=== PATIENT | female | born 1950 | race Caucasian/White ===

== ENCOUNTER 2017-10-10 13:02 | Inpatient (IN) | payer MEDICARE ==
[~2017-10-10] VITALS: Ht 160 cm; Wt 103.1 kg
[2017-10-10] MEDS ORDERED: NALOXONE 0.4 MG/ML VIAL. IV ONE (13:30)
--- NOTE | 2017-10-10 13:31 | EKG ---
[address] [address] Test Date: 2017-10-10 Test Time: 13:06:26 Pat Name: MIESHA GILMORE Department: Room: Gender: F Survey Research Manager: JONATHAN : 1950 Requested By: CM NIELSEN Order Number: [id number] Reading MD: Measurements Intervals [place] Rate: 75 P: 35 SD: 150 QRS: -36 QRSD: 118 T: 14 QT: 412 QTc: 463 Interpretive Statements SINUS RHYTHM ABNORMAL LEFT AXIS DEVIATION R-S TRANSITION ZONE IN V LEADS DISPLACED TO THE LEFT LEFT ANTERIOR FASCICULAR BLOCK LEFT VENTRICULAR HYPERTROPHY ABNORMAL ECG RI6.01 No previous ECG available for comparison
[2017-10-10 13:34] LABS: BASO # 0.1 x10^3/uL (0.0-0.2); BASO % 1 % (0-3); EOS # 0.3 x10^3/uL (0.0-0.7); EOS % 4 % (0-3); HEMOGLOBIN 10.5 g/dL (12.0-15.5); LYMPH # 2.3 x10^3/uL (1.0-4.8); LYMPH % 28 % (24-48); MEAN CORPUSCULAR HEMOGLOBIN 27 pg (25-35); MEAN CORPUSCULAR HGB CONC 33 g/dL (31-37); MEAN CORPUSCULAR VOLUME 83 fL (79-100); MONO # 0.9 x10^3/uL (0.0-1.1); MONO % 11 % (0-9); NEUT # 4.7 x10^3uL (1.8-7.7); NEUT % 57 % (31-73); PLATELET COUNT 373 x10^3/uL (140-400); RED BLOOD COUNT 3.88 x10^6/uL (3.50-5.40); RED CELL DISTRIBUTION WIDTH 15.9 % (11.5-14.5); WHITE BLOOD COUNT 8.2 x10^3/uL (4.0-11.0)
--- NOTE | 2017-10-10 13:40 | RAD ---
EXAM: Head CT without contrast. HISTORY: Mental status changes. TECHNIQUE: Computed tomographic images of the head were obtained without contrast. *One or more of the following individualized dose reduction techniques were utilized for this examination: 1. Automated exposure control. 2. Adjustment of the mA and/or kV according to patient size. 3. Use of iterative reconstruction technique. COMPARISON: None. FINDINGS: The exam is extremely limited due to motion. There is no hemorrhage. There is no mass effect or midline shift. There is extensive decreased attenuation within the cerebral white matter, a nonspecific finding. The orbits, paranasal sinuses mastoid air cells are unremarkable. The calvarium is unremarkable. IMPRESSION: 1. Extremely limited exam due to motion. Note is made that MRI is more sensitive for acute infarction. 2. Extensive decreased attenuation within the cerebral white matter, a nonspecific finding which can be seen with chronic small vessel disease. Electronically signed by: Marissa Brannon MD (10/10/2017 1:37 PM) [email or web address]
[2017-10-10 13:44] LABS: CALCIUM 8.9 mg/dL (8.5-10.1); CREATININE 1.1 mg/dL (0.6-1.0); GFR 49.8; POTASSIUM 4.3 mmol/L (3.5-5.1)
[2017-10-10] MEDS ORDERED: IV NORMAL SALINE 50ML 50 ML ONE (14:08)
[2017-10-10] MEDS ORDERED: PROMETHAZINE 25 MG/ML VIAL IV ONE (14:08)
[2017-10-10] MEDS ORDERED: PROMETHAZINE 12.5 MG in IV NORMAL SALINE 50ML 50 ML IV PRN (14:15)
[2017-10-10 14:17] LABS: CLARITY,URINE CLEAR; COLOR,URINE YELLOW
--- NOTE | 2017-10-10 14:17 | RAD ---
EXAM: Chest, single view. HISTORY: Unresponsive. COMPARISON: None. FINDINGS: A frontal view of the chest is obtained. There is mild diffuse increased interstitial opacity. There is no consolidation, effusion or pneumothorax. The heart is normal in size. IMPRESSION: Mild diffuse increased interstitial opacity suggesting trace congestion. Electronically signed by: Marissa Brannon MD (10/10/2017 2:13 PM) [email or web address]
[2017-10-10 14:18] LABS: BACTERIA,URINE 0 /HPF (0-FEW); BILIRUBIN,URINE NEG (NEG); GLUCOSE,URINE NEG (NEG); NITRITE,URINE NEG (NEG); RBC,URINE 0 /HPF (0-2); UROBILINOGEN,URINE 0.2 mg/dL (0.2 mg/dL); WBC,URINE 0 /HPF (0-4)
[2017-10-10] MEDS ORDERED: IV NORMAL SALINE 1,000ML 1,000 ML IV ONE (15:00)
--- NOTE | 2017-10-10 15:11 | PHYS DOC ---
Past History Past Medical History: Arthritis, Asthma, Hypertension, Other Adult General Chief Complaint Chief Complaint: ALTERED MENTAL STATUS HPI HPI 66-year-old female presents with decreased level of consciousness. She was last known to be about 10:30 PM last night. This morning, when her house the patient was sleeping. When the wet wash assembler showed up to clean the house, she found the patient on the floor of her bedroom and she was incontinent of urine and there was emesis. Patient was very difficult to arouse so she called EMS. When EMS arrived, they found the patient to be arousable but quite lethargic she was transported to the ED. In the ED the patient was able to be aroused and answered questions appropriately. She would only stay awake for about one question at a time. She was unable to tell us why she was in the hospital. She was able to say she did not feel well. Family provided the history of no new medication changes, no recent falls, no recent illnesses. The patient has not had a fever at home. She does routinely have emesis one to 2 times a day at least a few days a week. Review of Systems Review of Systems Review of systems was severely limited due to the patient's decreased level of consciousness. Constitutional: Denies fever [] Respiratory: Denies shortness of breath [] Cardiovascular: No additional information not addressed in HPI [] GI: Denies abdominal pain, Musculoskeletal: Denies back pain or joint pain [] All other systems were reviewed and found to be within normal limits, except as documented in this note. Current Medications Current Medications Current Medications Medications (Trade) Dose Ordered Sig/Jaz Start Time Stop Time Status Last Admin Dose Admin Naloxone HCl (Narcan) 0.4 mg 1X ONCE 10/10/17 13:30 10/10/17 13:47 DC 10/10/17 13:46 0.4 MG Promethazine HCl (Phenergan) 25 mg STK-MED ONCE 10/10/17 14:08 10/10/17 14:09 DC Promethazine HCl 12.5 mg/Sodium Chloride 50.5 ml @ 101 mls/hr PRN Q6HRS PRN 10/10/17 14:15 10/10/17 14:12 101 MLS/HR Sodium Chloride 1,000 ml @ 1,000 mls/hr 1X ONCE 10/10/17 15:00 10/10/17 15:59 Allergies Allergies Allergies Coded Allergies Type Severity Reaction Last Updated Verified Penicillins Allergy Unknown Rash 10/10/17 Yes Sulfa (Sulfonamide Antibiotics) Allergy Unknown Nausea 10/10/17 Yes clindamycin Allergy Unknown Nausea 10/10/17 Yes Physical Exam Physical Exam Constitutional: Well developed, well nourished, no acute distress, non-toxic appearance. Decreased alertness[] HENT: Normocephalic, atraumatic, bilateral external ears normal, oropharynx moist, no oral exudates, nose normal. [] Eyes: PERRLA, EOMI, conjunctiva normal, no discharge. [] Neck: Normal range of motion [] Cardiovascular:Heart rate regular rhythm, no murmur [] Lungs & Thorax: Bilateral breath sounds clear to auscultation [] Abdomen: Bowel sounds normal, soft, no masses, no pulsatile masses. [] Skin: Warm, dry, no erythema, no rash. [] Back: No tenderness, no CVA tenderness. [] Extremities: No tenderness, no cyanosis, no clubbing [] Neurologic: Decreased level of consciousness. Patient is arousable and will answer questions, but falls asleep quickly. She is moving all 4 extremities. She is aware of person place and time.[] Psychologic: Unable to determine. [] Current Patient Data Vital Signs Vital Signs Date Time Temp Pulse Resp B/P (MAP) Pulse Ox O2 Delivery O2 Flow Rate FiO2 10/10/17 14:47 75 16 112/68 (83) 99 Nasal Cannula 2.0 10/10/17 13:02 98.0 Lab Results Laboratory Tests Test 10/10/17 13:20 10/10/17 13:47 10/10/17 13:54 White Blood Count 8.2 x10^3/uL (4.0-11.0) Red Blood Count 3.88 x10^6/uL (3.50-5.40) Hemoglobin 10.5 g/dL (12.0-15.5) L Hematocrit 32.0 % (36.0-47.0) L Mean Corpuscular Volume 83 fL (79-100) Mean Corpuscular Hemoglobin 27 pg (25-35) Mean Corpuscular Hemoglobin Concent 33 g/dL (31-37) Red Cell Distribution Width 15.9 % (11.5-14.5) H Platelet Count 373 x10^3/uL (140-400) Neutrophils (%) (Auto) 57 % (31-73) Lymphocytes (%) (Auto) 28 % (24-48) Monocytes (%) (Auto) 11 % (0-9) H Eosinophils (%) (Auto) 4 % (0-3) H Basophils (%) (Auto) 1 % (0-3) Neutrophils # (Auto) 4.7 x10^3uL (1.8-7.7) Lymphocytes # (Auto) 2.3 x10^3/uL (1.0-4.8) Monocytes # (Auto) 0.9 x10^3/uL (0.0-1.1) Eosinophils # (Auto) 0.3 x10^3/uL (0.0-0.7) Basophils # (Auto) 0.1 x10^3/uL (0.0-0.2) Sodium Level 140 mmol/L (136-145) Potassium Level 4.3 mmol/L (3.5-5.1) Chloride Level 103 mmol/L (98-107) Carbon Dioxide Level 25 mmol/L (21-32) Anion Gap 12 (6-14) Blood Urea Nitrogen 11 mg/dL (7-20) Creatinine 1.1 mg/dL (0.6-1.0) H Estimated GFR (Cockcroft-Gault) 49.8 Glucose Level 128 mg/dL (70-99) H Lactic Acid Level 2.6 mmol/L (0.4-2.0) H Calcium Level 8.9 mg/dL (8.5-10.1) Troponin I Quantitative < 0.017 ng/mL (0-0.055) Glucose (Fingerstick) 115 mg/dL (70-99) H Urine Collection Type Unknown Urine Color Yellow Urine Clarity Clear Urine pH 7.5 Urine Specific [place] 1.015 Urine Protein Neg (NEG-TRACE) Urine Glucose (UA) Neg mg/dL (NEG) Urine Ketones (Stick) Neg mg/dL (NEG) Urine Blood Trace (NEG) Urine Nitrite Neg (NEG) Urine Bilirubin Neg (NEG) Urine Urobilinogen Dipstick 0.2 mg/dL (0.2 mg/dL) Urine Leukocyte Esterase Neg (NEG) Urine RBC 0 /HPF (0-2) Urine WBC 0 /HPF (0-4) Urine Bacteria 0 /HPF (0-FEW) EKG EKG [] Radiology/Procedures Radiology/Procedures EXAM: Chest, single view. HISTORY: Unresponsive. COMPARISON: None. FINDINGS: A frontal view of the chest is obtained. There is mild diffuse increased interstitial opacity. There is no consolidation, effusion or pneumothorax. The heart is normal in size. IMPRESSION: Mild diffuse increased interstitial opacity suggesting trace congestion. Electronically signed by: Marissa Brannon MD (10/10/2017 2:13 PM) [facility] []EXAM: Head CT without contrast. HISTORY: Mental status changes. TECHNIQUE: Computed tomographic images of the head were obtained without contrast. *One or more of the following individualized dose reduction techniques were utilized for this examination: 1. Automated exposure control. 2. Adjustment of the mA and/or kV according to patient size. 3. Use of iterative reconstruction technique. COMPARISON: None. FINDINGS: The exam is extremely limited due to motion. There is no hemorrhage. There is no mass effect or midline shift. There is extensive decreased attenuation within the cerebral white matter, a nonspecific finding. The orbits, paranasal sinuses mastoid air cells are unremarkable. The calvarium is unremarkable. IMPRESSION: 1. Extremely limited exam due to motion. Note is made that MRI is more sensitive for acute infarction. 2. Extensive decreased attenuation within the cerebral white matter, a nonspecific finding which can be seen with chronic small vessel disease. Electronically signed by: Marissa Brannon MD (10/10/2017 1:37 PM) [email or web address] Course & Med Decision Making Course & Med Decision Making Pertinent Labs and Imaging studies reviewed. (See chart for details) The patient does not appear to have focal deficits indicative of a stroke. She is able to answer simple questions and is aware of her surroundings when she is awake. She is unable to stay awake for more than a few seconds. Despite the patient's encephalopathy, I do not have an infectious source. Her labs are unremarkable except for slightly elevated lactic acid 2.6. We will repeat that in 4 hours. Her chest x-ray showed mild increased congestion, but no focal findings or consolidations. Her urinalysis is negative for infection. Her glucose is normal. Her head CT is negative for acute findings. I discussed the case with her PCP, Dr. Spring and he has accepted patient for admission. He has requested a consult with neurology. The family is in agreement with this plan. I talked with neurology who did not feel an emergent MRI was necessary. They agreed with admission for observation. They gave the option of lumbar puncture if warranted. I discussed with Dr. Spring and he preferred to wait on this procedure. Family was also in agreement with this. [] Dragon Disclaimer Dragon Disclaimer This electronic medical record was generated, in whole or in part, using a voice recognition dictation system. Departure Departure: Referrals: PCP,MARIZOL (PCP) CM NIELSEN DO October 10, 2017 15:11
[2017-10-10 15:38] LABS: BARBITURATES NEG (NEG); BENZODIAZEPINES NEG (NEG); CANNABINOIDS NEG (NEG); COCAINE NEG (NEG); METHADONE NEG (NEG); OPIATES NEG (NEG); PHENCYCLIDINE NEG (NEG)
[2017-10-10 15:39] LABS: AMPHETAMINE/METHAMPHETAMINE NEG (NEG)
[2017-10-10] MEDS ORDERED: NIFE90TA PO (15:55)
[2017-10-10] MEDS ORDERED: ONDA4TAB10 SL (15:55)
[2017-10-10] MEDS ORDERED: CHOL100013 PO (15:56)
[2017-10-10] MEDS ORDERED: IRON100V6 IJ (15:57)
[2017-10-10] MEDS ORDERED: UBID100C40 PO (15:58)
[2017-10-10] MEDS ORDERED: MAGN400C PO (15:58)
[2017-10-10] MEDS ORDERED: DIPH25CA58 PO (15:59)
[2017-10-10] MEDS ORDERED: IV NORMAL SALINE 1,000ML 1,000 ML IV SCH (16:00)
[2017-10-10] MEDS ORDERED: CETI10TA22 PO (16:01)
[2017-10-10] MEDS ORDERED: calcium PO (16:01)
[2017-10-10] MEDS ORDERED: GLUC100018 PO (16:02)
[2017-10-10] MEDS ORDERED: ALBU0.63 NEB (16:03)
[2017-10-10] MEDS ORDERED: ALBU6.7H IH (16:04)
[2017-10-10] MEDS ORDERED: XOPENEX0.63 MG/3 NEB (16:04)
[2017-10-10] MEDS ORDERED: FOLI1TAB16 PO (16:05)
[2017-10-10] MEDS ORDERED: CEVI30CA5 PO ×2 (16:06→17:26)
[2017-10-10] MEDS ORDERED: PANT40TA3 PO (16:06)
[2017-10-10] MEDS ORDERED: CITA20TA6 PO (16:07)
[2017-10-10] MEDS ORDERED: CITA40TA5 PO (16:07)
[2017-10-10] MEDS ORDERED: HYDR200T71 PO ×2 (16:08→16:14)
[2017-10-10] MEDS ORDERED: RANI300T3 PO (16:09)
[2017-10-10] MEDS ORDERED: FLUT9.9S NS (16:09)
[2017-10-10] MEDS ORDERED: METH4TAB PO (16:09)
[2017-10-10] MEDS ORDERED: ZOLP12.52 PO (16:10)
[2017-10-10] MEDS ORDERED: METF10003 PO (16:14)
[2017-10-10] MEDS ORDERED: CYAN10002 IM (16:15)
[2017-10-10] MEDS ORDERED: LEVO100T5 PO (16:15)
[2017-10-10 17:10] VITALS: BP 137/73
[2017-10-10] MEDS ORDERED: TRAM50TA PO (17:16)
[2017-10-10] MEDS ORDERED: MODA100T26 PO (17:18)
[2017-10-10] MEDS ORDERED: CYCL-331 PO (17:19)
[2017-10-10] MEDS ORDERED: BUPR522T PO (17:23)
[2017-10-10] MEDS ORDERED: SUCR1TAB PO (17:25)
[2017-10-10] MEDS ORDERED: PROM25SU32 RC (17:27)
[2017-10-10] MEDS ORDERED: CYCL1DRO EACHEYE (17:28)
[2017-10-10] MEDS ORDERED: METH2.5T PO (17:28)
[2017-10-10] MEDS ORDERED: [UNRECOGNIZED DRUG - CODE] TP (17:31)
[2017-10-10] MEDS ORDERED: ORPH-16 PO (17:32)
[2017-10-10] MEDS ORDERED: METH4TAB2 PO (17:34)
[2017-10-10] MEDS ORDERED: NON FORMULARY ITEM (Methylprednisolone (Medrol) 1 PKG) PO SCH (18:30)
[2017-10-10] MEDS ORDERED: NON FORMULARY ITEM (Levalbuterol Hcl (Xopenex) 1 VIAL) NEB PRN (18:30)
[2017-10-10] MEDS ORDERED: ALBUTEROL SULFATE 8GM INHALER. IH PRN (18:30)
[2017-10-10] MEDS ORDERED: NON FORMULARY ITEM (Albuterol Sulfate (Albuterol Sulfate Neb Soln) 1 VIAL) NEB PRN (18:30)
[2017-10-10 19:11] LABS: ALBUMIN 3.1 g/dL (3.4-5.0); TOTAL BILIRUBIN 0.2 mg/dL (0.2-1.0); TOTAL PROTEIN 6.2 g/dL (6.4-8.2)
[2017-10-10] MEDS ORDERED: ALBUTEROL SULFATE 2.5 MG/3 ML NEBU. NEB PRN (19:15)
[2017-10-10 19:34] LABS: DIRECT BILIRUBIN 0.1 mg/dL (0.0-0.2)
[2017-10-10 19:41] VITALS: BP 147/70
[2017-10-10 20:00] VITALS: BP 140/73
[2017-10-10] MEDS ORDERED: VANCOMYCIN 2 GM in IV NORMAL SALINE 500ML 500 ML IV ONE (20:00)
[2017-10-10] MEDS ORDERED: CEVIMELINE HCL 30 MG CAPSULE PO SCH ×2 (21:00)
[2017-10-10] MEDS ORDERED: HYDROXYCHLOROQUINE SULFATE 200 MG PO SCH (21:00)
[2017-10-10] MEDS: BUPROPION HBR PO SCH (21:00)
[2017-10-10] MEDS: VANCOMYCIN PER PHARMACY MC PRN (21:27)
[2017-10-10] MEDS: cycloSPORINE 0.05% OPTH 1 DROP DROPERETTE OU SCH (21:30)
[2017-10-10] MEDS: FAMOTIDINE 20 MG TABLET PO SCH (21:49)
[2017-10-10] MEDS: HYDROXYCHLOROQUINE 200 MG TABLET PO SCH (21:49)
[2017-10-10 22:00] VITALS: BP 145/71
[2017-10-10 23:00] VITALS: BP 134/81
[2017-10-11] VITALS (16 sets, daily range): BP systolic 120–175; BP diastolic 14–98
[2017-10-11] MEDS: ONDANSETRON ODT 4 MG TAB.RAPDIS PO PRN (03:55)
[2017-10-11] MEDS: LEVOTHYROXINE 100 MCG TABLET PO SCH (06:24)
[2017-10-11 06:44] LABS: BASO # 0.1 x10^3/uL (0.0-0.2); BASO % 1 % (0-3); EOS # 0.2 x10^3/uL (0.0-0.7); EOS % 2 % (0-3); HEMOGLOBIN 9.4 g/dL (12.0-15.5); LYMPH # 1.6 x10^3/uL (1.0-4.8); LYMPH % 20 % (24-48); MEAN CORPUSCULAR HEMOGLOBIN 27 pg (25-35); MEAN CORPUSCULAR HGB CONC 32 g/dL (31-37); MEAN CORPUSCULAR VOLUME 83 fL (79-100); MONO # 0.9 x10^3/uL (0.0-1.1); MONO % 12 % (0-9); NEUT # 5.2 x10^3uL (1.8-7.7); NEUT % 66 % (31-73); PLATELET COUNT 346 x10^3/uL (140-400); RED CELL DISTRIBUTION WIDTH 15.9 % (11.5-14.5)
[2017-10-11 06:50] LABS: CALCIUM 8.3 mg/dL (8.5-10.1); CREATININE 0.8 mg/dL (0.6-1.0); POTASSIUM 4.1 mmol/L (3.5-5.1); TOTAL BILIRUBIN 0.2 mg/dL (0.2-1.0); TOTAL PROTEIN 6.1 g/dL (6.4-8.2)
[2017-10-11] MEDS: PANTOPRAZOLE 40 MG TABLET. PO SCH (07:50)
[2017-10-11 07:58] LABS: SQUAMOUS EPITHELIAL CELL,UR FEW /LPF
[2017-10-11] MEDS: cycloSPORINE 0.05% OPTH 1 DROP DROPERETTE OU SCH ×2 (08:42→21:06)
[2017-10-11] MEDS: CITALOPRAM 20 MG TABLET. PO SCH (08:42)
[2017-10-11] MEDS: LACTOBACILLUS RHAMNOSUS GG 1 CAPSULE. PO SCH ×2 (08:43→21:51)
[2017-10-11] MEDS: HYDROXYCHLOROQUINE 200 MG TABLET PO SCH ×2 (08:44→21:07)
[2017-10-11] MEDS: FAMOTIDINE 20 MG TABLET PO SCH ×2 (08:44→20:29)
[2017-10-11] MEDS: MODAFINIL 100 MG TABLET PO SCH (08:45)
[2017-10-11] MEDS: CETIRIZINE HCL 10 MG TABLET PO SCH (08:45)
[2017-10-11] MEDS ORDERED: PRED-220 PO (11:53)
[2017-10-11] MEDS ORDERED: VANCOMYCIN 2 GM in IV NORMAL SALINE 500ML 500 ML IV SCH ×2 (12:00→22:00)
[2017-10-11] MEDS ORDERED: CONTRAST GIVEN MC PRN (12:15)
[2017-10-11] MEDS ORDERED: IOHEXOL 300 MG/ML 75 ML VIAL. IV ONE (12:30)
[2017-10-11] MEDS: VANCOMYCIN PER PHARMACY MC PRN ×2 (12:39→13:21)
--- NOTE | 2017-10-11 12:54 | RAD ---
CT arteriogram of the chest. HISTORY: Positive d-dimer, CT arteriogram of the chest was done using 75 mL Omnipaque 300 contrast. Sagittal and coronal MIP images were reconstructed. There is no mediastinal adenopathy or pleural effusion. There is a large hiatus hernia. Visualized portions of the liver and spleen are normal. Adrenal glands are normal. There are mild hazy infiltrates in the left lower lobe, aspiration or pneumonia can have this pattern. Contrast opacification is not ideal. There are no central pulmonary emboli IMPRESSION: 1. Left lung mainly left lower lobe infiltrates possible aspiration or pneumonia. 2. No definite pulmonary embolus. 3. Large hiatus hernia. PQRS Compliance Statement: One or more of the following individualized dose reduction techniques were utilized for this examination: 1. Automated exposure control 2. Adjustment of the mA and/or kV according to patient size 3. Use of iterative reconstruction technique Electronically signed by: Abdulaziz Lei MD (10/11/2017 12:51 PM) [facility]
[2017-10-11] MEDS: predniSONE 5 MG TABLET PO SCH (13:15)
[2017-10-11] MEDS: methylPREDNISolone 4 MG TABLET. PO SCH (13:15)
[2017-10-11] MEDS: VANCOMYCIN 1.5 GM in IV NORMAL SALINE 500ML 500 ML IV SCH (13:16)
[2017-10-11] MEDS: HEPARIN PF for SUB-Q USE 5,000 UNIT/0.5 ML VIAL. SQ SCH ×2 (13:17→21:09)
--- NOTE | 2017-10-11 18:14 | HP ---
ADMIT DATE: 10/10/2017 HISTORY OF PRESENT ILLNESS: A 66-year-old female apparently had decreased level of consciousness, was last known the night before admission; however, her healthcare administrative assistant showed up to clean the house, found the patient on the floor in her bedroom and was incontinent of urine and there was emesis. The patient was extremely difficult to arouse. She was then transported to the Emergency Room, unable to give most answers at all and went back into a deep sleep, but not coma. The patient had no other seizure-like activity. She does routinely have emesis 1-2 times a week; however, this was new as far as her loss of consciousness and her inability to answer questions. PAST MEDICAL HISTORY: Syncope, cardiac disorders, asthma, osteoarthritis, endocrine disorders, Sjogren's disease, diabetes, systemic lupus erythematosus, her pneumonia and influenza vaccinations are up-to-date. FAMILY HISTORY: Mother with lupus. Father with heart disease, cholecystitis, and appendicitis. ALLERGIES: THE PATIENT HAS ALLERGIES TO PENICILLIN, SULFUR, AND CLINDAMYCIN. MEDICATIONS AT HOME: Benadryl, Phenergan, Zyrtec 10, hydroxychloroquine 200 mg b.i.d. along with another 200 mg of , methotrexate 6 tablets weekly, Evoxac 30 mg t.i.d. for dry eyes, albuterol, Xopenex 1 vial nebs t.i.d., INFeD, tramadol 50 mg tablet, , Aplenzin 522 mg daily, Celexa 20 mg daily, Provigil 100 mg daily, Ambien 12.5 mg daily, cyclosporine, magnesium oxide, Zofran p.r.n., Zantac, Carafate, Protonix 40, Medrol Dosepak, prednisone 5, metformin, levothyroxine 100 mcg, B12 tablet, vitamin D, glucosamine, CoQ10, and calcium. SOCIAL HISTORY: The patient denies smoking, alcohol or drug use or tobacco use. IMMUNIZATIONS: Up-to-date. Full code. REVIEW OF SYSTEMS: The patient is not able to give any type of history as she is pretty much comatose. PHYSICAL EXAMINATION: GENERAL: This is very somnolent and nonresponsive individual. VITAL SIGNS: Blood pressure 140/70, respiratory rate 16, pulse 80, ____, oxygen saturation good. HEENT: The patient's head was atraumatic, normocephalic. Eyes: PERRLA without jaundice. Some reactive to light and accommodation. The mouth and throat were dry mucous membranes. NECK: Supple, without JVD, carotid bruits nor thyromegaly. LUNGS: The patient's lungs were diminished. Poor movement of air, but basically clear. CARDIOVASCULAR: CVR exam is regular sinus rhythm, S1, S2, without murmur, rub, thrill, or extra heart sounds. ABDOMEN: Soft, nontender. No rebounding, no guarding. Positive bowel sounds, no hepatosplenomegaly was noted. EXTREMITIES: No clubbing, cyanosis nor edema. NEUROLOGIC: Fairly arousable and the patient was given Narcan. The patient's reflex is appropriate both upper and lower extremities. Plantars down. The patient had a chest x-ray that was unremarkable; however, the CTA shows possible trace congestion. Head CT was unremarkable. In any case, the patient was admitted for further evaluation and treatment. Positive D-dimer shows a CTA possible pneumonia The patient is being covered for possible sepsis. Her initial lactic acid was elevated as well. IMPRESSION: Acute change in mental status, acute encephalopathy, seizure-like activity per history, aspiration, possible pneumonia, sepsis, moderate protein malnutrition, anemia, iron deficiency. The patient consulted with Neurology. PLAN: Continue on IV antibiotic therapy and make further evaluation on her per those results. LYLE FIGUEREDO MD DR: BRANDON/antonio JOB#: [id number] / [id number]
[2017-10-11] MEDS ORDERED: ZOLP5TAB5 PO (19:51)
[2017-10-11] MEDS: SUCRALFATE 1 GM TABLET. PO SCH (20:29)
[2017-10-11] MEDS: BUPROPION HBR PO SCH (21:00)
[2017-10-11] MEDS: CEVIMELINE HCL 30 MG PO SCH (21:06)
[2017-10-11] MEDS: ZOLPIDEM 5 MG TABLET. PO SCH (21:07)
[2017-10-12] MEDS: VANCOMYCIN 1.5 GM in IV NORMAL SALINE 500ML 500 ML IV SCH ×2 (01:11→14:16)
--- NOTE | 2017-10-12 01:14 | PN ---
DATE: SUBJECTIVE: The patient denies any new medical neurological complaints; however, she stated she did not recall the conversation between her and me last night. She denies headaches, visual disturbances, chest pain, shortness of breath, or palpitations. OBJECTIVE: GENERAL: Moderately obese white female, not in acute distress. VITAL SIGNS: Blood pressure 145/71, respiratory rate 18, pulse is 70 and regular, temperature is 97.5, and oxygen saturation is 92% on room air. HEENT: Normocephalic, atraumatic, otherwise unremarkable. NECK: Supple. Negative for carotid bruit, lymphadenopathy or thyromegaly. LUNGS: Clear to A and P. CARDIOVASCULAR: Regular rate and rhythm, normal S1, S2. There is no S3, S4, murmur. ABDOMEN: Soft. Bowel sounds positive. EXTREMITIES: Negative for cyanosis, clubbing or pitting edema. NEUROLOGICAL EXAM: Mental Status: The patient is alert and oriented x 3. Speech is fluent. There is no language dysfunction. Memory, judgment, abstract thinkings are normal. The patient denies hallucination or delusion. Cranial nerves are intact. No focal motor or sensory deficit. Deep tendon reflexes were symmetric and active without pathology responses. Gait and coordinations are normal. LABORATORY DATA: CBC revealed white cells of 8000, hemoglobin 9.4, hematocrit 29, and platelet count 346,000. Chemistry revealed a sodium of 140, potassium 4.1, chloride 105, CO2 of 26, BUN 7, creatinine 0.8, glucose is 93, and calcium 8.3. Lactic acid is 1. IMPRESSION: 1. Acute mental status changes - improved. 2. Status post fall, probably syncope versus seizure, no recurrence since admission. 3. Multiple medical problems include lupus, ____ disease, gastroesophageal reflux disease, osteoarthritis, hypertension, and anemia. RECOMMENDATION: 1. Await for previous medical record at [facility]. 2. We will arrange for an EEG to be done on an outpatient basis. 3. Continue with current management initiated by Dr. Gauthier. M Phuong JENKINS MD DR: CASIMIRO/antonio JOB#: [id number] / [id number]
[2017-10-12 04:35] VITALS: BP 144/74
[2017-10-12] MEDS: LEVOTHYROXINE 100 MCG TABLET PO SCH (05:45)
[2017-10-12] MEDS: HEPARIN PF for SUB-Q USE 5,000 UNIT/0.5 ML VIAL. SQ SCH ×3 (05:48→21:08)
[2017-10-12 05:50] LABS: BASO % 0 % (0-3); EOS # 0.3 x10^3/uL (0.0-0.7); EOS % 4 % (0-3); HEMOGLOBIN 10.1 g/dL (12.0-15.5); LYMPH # 2.2 x10^3/uL (1.0-4.8); LYMPH % 29 % (24-48); MEAN CORPUSCULAR HEMOGLOBIN 27 pg (25-35); MEAN CORPUSCULAR HGB CONC 33 g/dL (31-37); MEAN CORPUSCULAR VOLUME 83 fL (79-100); MONO # 0.9 x10^3/uL (0.0-1.1); MONO % 12 % (0-9); NEUT # 4.2 x10^3uL (1.8-7.7); NEUT % 55 % (31-73); PLATELET COUNT 356 x10^3/uL (140-400); RED BLOOD COUNT 3.73 x10^6/uL (3.50-5.40); WHITE BLOOD COUNT 7.6 x10^3/uL (4.0-11.0)
[2017-10-12 06:02] LABS: ALBUMIN/GLOBULIN RATIO 0.9 (1.0-1.7); CALCIUM 8.5 mg/dL (8.5-10.1); CREATININE 0.8 mg/dL (0.6-1.0); POTASSIUM 4.1 mmol/L (3.5-5.1); TOTAL BILIRUBIN 0.2 mg/dL (0.2-1.0); TOTAL PROTEIN 6.4 g/dL (6.4-8.2)
[2017-10-12 06:17] VITALS: BP 160/76
[2017-10-12] MEDS: SUCRALFATE 1 GM TABLET. PO SCH ×4 (07:29→20:39)
[2017-10-12] MEDS: PANTOPRAZOLE 40 MG TABLET. PO SCH (07:29)
[2017-10-12] MEDS: cycloSPORINE 0.05% OPTH 1 DROP DROPERETTE OU SCH ×2 (08:40→20:39)
[2017-10-12] MEDS: CITALOPRAM 20 MG TABLET. PO SCH (08:41)
[2017-10-12] MEDS: LACTOBACILLUS RHAMNOSUS GG 1 CAPSULE. PO SCH ×2 (08:41→20:40)
[2017-10-12] MEDS: FAMOTIDINE 20 MG TABLET PO SCH ×2 (08:41→20:40)
[2017-10-12] MEDS: methylPREDNISolone 4 MG TABLET. PO SCH (08:41)
[2017-10-12] MEDS: HYDROXYCHLOROQUINE 200 MG TABLET PO SCH ×2 (08:41→20:40)
[2017-10-12] MEDS: CEVIMELINE HCL 30 MG PO SCH ×3 (08:41→20:40)
[2017-10-12] MEDS: predniSONE 5 MG TABLET PO SCH (08:42)
[2017-10-12] MEDS: MODAFINIL 100 MG TABLET PO SCH (08:44)
[2017-10-12] MEDS: CETIRIZINE HCL 10 MG TABLET PO SCH (08:44)
[2017-10-12] MEDS: ONDANSETRON ODT 4 MG TAB.RAPDIS PO PRN (11:11)
[2017-10-12 13:00] VITALS: BP 120/72
[2017-10-12 13:03] LABS: VANC TR 17.6 mcg/mL (10.0-20.0)
[2017-10-12] MEDS: VANCOMYCIN PER PHARMACY MC PRN (13:45)
--- NOTE | 2017-10-12 15:33 | PN ---
DATE: 10/12/2017 SUBJECTIVE: The patient denies any new medical or neurological complaints; however, she stated she has had intermittent dizziness described as vertigo mainly when she changes her body positions or turning her head quickly to any directions. The symptoms have been there intermittently for the last 3 weeks. She denies nausea or vomiting. The patient has not had any recurrent syncopal or seizure-like activity since admission. Chest CT angio revealed evidence of left lower lobe infiltrate and possible aspiration or pneumonia, otherwise negative for pulmonary embolism and positive for large hiatal hernia. OBJECTIVE: GENERAL: Moderately obese white female, not in acute distress. VITAL SIGNS: Blood pressure 146/70, respiratory rate 16, pulse is 73, temperature is 97.8, oxygen saturation is 96% on room air. HEENT: Normocephalic, atraumatic, otherwise unremarkable. NECK: Supple. Negative for carotid bruit, lymphadenopathy, or thyromegaly. LUNGS: Clear to A and P. CARDIOVASCULAR: Regular rate and rhythm, normal S1-S2. There is no S3, S4 murmur. ABDOMEN: Soft. Bowel sounds positive. EXTREMITIES: Negative for cyanosis, clubbing, or pitting edema. NEUROLOGIC: Mental Status: The patient is alert and oriented x 3. Speech is fluent. There is no language dysfunction, otherwise, unremarkable. Cranial nerves are intact. Motor Examination: No focal muscle bulk was seen. The tone is normal. The strength is 5/5 throughout. Sensory examination revealed normal pinprick, light touch, vibratory and position senses. Deep tendon reflexes are symmetric and hypoactive with absent Achilles responses. Gait: The stance is steady. LABORATORY DATA: CBC revealed white blood cells of 7.6 thousand, hemoglobin 10.1, hematocrit 31, platelet count 356,000. Chemistry revealed sodium of 141, potassium 4.1, chloride 107, CO2 24, BUN 4, creatinine 0.8, glucose 95. IMPRESSION: 1. Acute mental status change - resolved. Etiology uncertain, rule out syncope versus seizure-like activities. 2. Left lower lobe pneumonia. 3. Multiple medical problems include systemic lupus erythematosus, Sjogren's disease, Raynaud's syndrome, osteoarthritis, hypertension, peptic ulcer disease, and benign positional vertigo. RECOMMENDATIONS: 1. Continue with current management initiated by Dr. Gauthier. 2. Await medical record from [facility]. 3. Vestibular exercise. 4. We will arrange for an EEG to be done on an outpatient basis. M Phuong JENKINS MD DR: CASIMIRO/antonio JOB#: [id number] / [id number]
--- NOTE | 2017-10-12 15:42 | PN ---
DATE: 10/12/2017 NOTE: This is an incomplete dictation. SUBJECTIVE: A 66-year-old female with history of lupus, came in with a metabolic encephalopathy. The patient in turn has been making fairly good progress overall. The patient is feeling better. She is receiving IV antibiotic therapy. OBJECTIVE: VITAL SIGNS: The patient's blood pressure 140/70, respiratory rate 16, pulse 73, afebrile. GENERAL: The patient is alert and oriented x 3. LUNGS: Diminished primarily in the right lower lobe. CTA because of a positive D-dimer did not show any clots, but did show the pneumonia in the left lower lung, possible aspiration. Discussed with the patient she will need to go ahead and get a speech therapy consult. Otherwise, the patient is feeling good. ABDOMEN: Soft, nontender. EXTREMITIES: No clubbing, cyanosis or edema. NEUROLOGIC: Intact. IMPRESSION: Left lower lobe pneumonia, sepsis, metabolic encephalopathy, syncope versus seizures, lupus, gastroesophageal reflux, osteoarthritis, hypertension, chronic anemia . LYLE FIGUEREDO MD DR: BRANDON/antonio JOB#: [id number] / [id number]
[2017-10-12 16:45] VITALS: BP 141/61
[2017-10-12 20:14] VITALS: BP 134/65
[2017-10-12] MEDS: BUPROPION HBR PO SCH (20:41)
[2017-10-12] MEDS: ZOLPIDEM 5 MG TABLET. PO SCH (21:06)
[2017-10-13] VITALS (7 sets, daily range): BP systolic 130–161; BP diastolic 63–78
[2017-10-13] MEDS: VANCOMYCIN 1.5 GM in IV NORMAL SALINE 500ML 500 ML IV SCH ×2 (01:04→13:48)
[2017-10-13] MEDS: HEPARIN PF for SUB-Q USE 5,000 UNIT/0.5 ML VIAL. SQ SCH ×3 (05:52→21:48)
[2017-10-13] MEDS: LEVOTHYROXINE 100 MCG TABLET PO SCH (05:52)
[2017-10-13 06:27] LABS: BASO # 0.1 x10^3/uL (0.0-0.2); BASO % 1 % (0-3); EOS # 0.3 x10^3/uL (0.0-0.7); EOS % 3 % (0-3); HEMATOCRIT 30.6 % (36.0-47.0); LYMPH % 25 % (24-48); MEAN CORPUSCULAR HEMOGLOBIN 27 pg (25-35); MEAN CORPUSCULAR HGB CONC 33 g/dL (31-37); MEAN CORPUSCULAR VOLUME 83 fL (79-100); MONO # 0.9 x10^3/uL (0.0-1.1); MONO % 11 % (0-9); NEUT # 4.7 x10^3uL (1.8-7.7); NEUT % 59 % (31-73); PLATELET COUNT 357 x10^3/uL (140-400); RED BLOOD COUNT 3.69 x10^6/uL (3.50-5.40); RED CELL DISTRIBUTION WIDTH 16.1 % (11.5-14.5); WHITE BLOOD COUNT 7.9 x10^3/uL (4.0-11.0)
[2017-10-13 06:31] LABS: CALCIUM 8.6 mg/dL (8.5-10.1); CREATININE 0.8 mg/dL (0.6-1.0); POTASSIUM 3.9 mmol/L (3.5-5.1)
[2017-10-13] MEDS: FAMOTIDINE 20 MG TABLET PO SCH ×2 (08:44→20:50)
[2017-10-13] MEDS: CITALOPRAM 20 MG TABLET. PO SCH (08:44)
[2017-10-13] MEDS: MODAFINIL 100 MG TABLET PO SCH (08:44)
[2017-10-13] MEDS: PANTOPRAZOLE 40 MG TABLET. PO SCH (08:44)
[2017-10-13] MEDS: SUCRALFATE 1 GM TABLET. PO SCH ×4 (08:44→20:50)
[2017-10-13] MEDS: cycloSPORINE 0.05% OPTH 1 DROP DROPERETTE OU SCH ×2 (08:44→20:49)
[2017-10-13] MEDS: LACTOBACILLUS RHAMNOSUS GG 1 CAPSULE. PO SCH ×2 (08:45→20:50)
[2017-10-13] MEDS: predniSONE 5 MG TABLET PO SCH (08:45)
[2017-10-13] MEDS: CETIRIZINE HCL 10 MG TABLET PO SCH (08:45)
[2017-10-13] MEDS: HYDROXYCHLOROQUINE 200 MG TABLET PO SCH ×2 (08:46→20:51)
[2017-10-13] MEDS: CEVIMELINE HCL 30 MG PO SCH ×3 (08:47→20:49)
[2017-10-13] MEDS: methylPREDNISolone 4 MG TABLET. PO SCH (08:47)
--- NOTE | 2017-10-13 09:17 | CONS ---
DATE OF CONSULTATION: 10/10/2017 REFERRING PHYSICIAN: Dr. Gauthier REASON FOR CONSULTATION: Rule out syncope versus seizure. HISTORY OF PRESENT ILLNESS: This is a 66-year-old very pleasant female who was admitted through the Emergency Room after she presented with new onset of loss of consciousness. Apparently, the patient has been tired and generalized weak for the last month or so. She tried to lie down in bed. 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 She apparently had urinary incontinence and a small emesis was found as well. The patient did not recall any fall and she did not complain of any injuries. EMS was activated and while she was on her way to the ER, the patient was somewhat weak and she did answers the question appropriately; however, the patient did not recall that. In the Emergency Room, the patient was alert and oriented. Initial nonenhanced head CT scan was performed and revealed extensive, but not specific chronic small vessel ischemic changes, otherwise no acute intracranial process. REVIEW OF SYSTEMS: The patient denies headaches, visual disturbances, nausea, vomiting, chest pain, shortness of breath or palpitation. She stated she had 2 episodes early in this year and last month described as spinning. When she tries to stand up and occasionally, this dizziness occurred when was going to flat in bed. PAST MEDICAL HISTORY: Significant for episodic vertigo, a long history of lupus, complicated with Sjogren disease and Raynaud's syndrome, asthma, hypertension, depression, GERD, hypothyroidism, and certain history of diabetes mellitus. SOCIAL HISTORY: The patient lives with the family, the patient is . She lives with her at home. She denies smoking or guarding or history of drug use. CURRENT HOME MEDICATIONS: Methotrexate 15 mg p.o. weekly, nifedipine 90 mg p.o. daily, modafinil 100 mg daily, Celexa 40 mg daily, Zyrtec 10 mg daily, Medrol 4 mg daily, Protonix 40 mg daily, levothyroxine 100 mcg daily, Pepcid 20 mg daily, Plaquenil 200 mg b.i.d., Restasis eyedrops one drop b.i.d., cevimeline HCL 30 mg t.i.d., albuterol inhalers. Current hospital medication as above and added vancomycin, levofloxacin. ALLERGIES: SULFA DRUGS, PENICILLIN, and CLINDAMYCIN. REVIEW OF SYSTEMS: A 10-point review of system was performed and as mentioned above in the history of present consistent with a possible syncopal episode versus seizure. PHYSICAL EXAMINATION: GENERAL EXAMINATION: Obese white female, in no acute distress. She weighs 226 pound. VITAL SIGNS: Blood pressure 147/70, respiratory rate 17, pulse is 74, and temperature is 97.1, oxygen saturation is 91% on room air. HEENT: Normocephalic, atraumatic, otherwise unremarkable. NECK: Supple. Negative for carotid bruit or lymphadenopathy, or thyromegaly. RESPIRATORY: Lungs clear to A and P. CARDIOVASCULAR: Regular rate and rhythm. Normal S1, S2. There is no S3, S4 or murmurs. ABDOMEN: Soft. Bowel sounds positive. EXTREMITIES: Negative for cyanosis, clubbing, or edema. NEUROLOGIC: Mental status: The patient is alert and oriented x 3. The speech is fluent. There is no language dysfunction. Memory, judgement, and abstract thinking are normal. The patient denies hallucination or delusion. Cranial nerves: Visual gilbert are full. The pupils are reactive to light and accommodation. The extraocular movements are intact. There is no nystagmus. There is no facial, motor or sensory deficit. Hearing appeared to be intact. The palate is elevated symmetrically. Sternocleidomastoid muscles are peripherally bilaterally. The patient shrugs her shoulder symmetrically and protrudes the tongue in the midline, no fasciculations, and muscular atrophy. Motor examination: No focal muscle bulk was seen. Tone is normal. Sphincter is 5/5 throughout. Sensory examination: Revealed normal pinprick to light touch senses throughout. Deep tendon reflexes were symmetric and hypoactive without ____ responses. Gait is steady. The patient walks in the room without difficulties. LABORATORY DATA: CBC revealed white blood cells of 8200, hemoglobin 10.5, hematocrit 32, platelet count 373,000. D-dimer is elevated at 0.82. Urinalysis is negative for urinary tract infections. Urine tox screen is negative. Chest x-ray revealed a mild diffused increased interstitial opacities suggesting trace congestion and a head CT scan consistent with extensive chronic small vessel ischemic changes. IMPRESSION: 1. Acute mental status changes followed by loss of consciousness, urinary incontinence, and emesis, rule out seizure. 2. Rule out pneumonia. 3. Multiple medical problems include lupus erythematosus, Sjogren's disease, Raynaud's syndrome, osteoarthritis, hypertension, and a possible benign positional vertigo. RECOMMENDATIONS: 1. The patient had pneumonia few months ago at [facility] and she probably had a cardiac workup. Therefore, I recommend to obtain her medical record from [facility]. 2. We will arrange for EEG and can be done on an outpatient early coming week. 3. Continue with the current care initiated by Dr. Gauthier. M Phuong JENKINS MD DR: CASIMIRO/antonio JOB#: [id number] / [id number]
[2017-10-13] MEDS: ZOLPIDEM 5 MG TABLET. PO SCH (20:50)
[2017-10-13] MEDS: BUPROPION HBR PO SCH (20:50)
--- NOTE | 2017-10-13 23:55 | PN ---
DATE: SUBJECTIVE: The patient denies any new medical or neurological complaints. She denies headaches, visual disturbances, vertigo, weakness or paresthesia. OBJECTIVE: GENERAL: Moderately obese white female, not in acute distress. VITAL SIGNS: Blood pressure is 161/78, respiratory rate 18, pulse is 68 and regular, temperature is 98.3, oxygen saturation 96% on room air. HEENT: Normocephalic, atraumatic, otherwise unremarkable. NECK: Supple. Negative for carotid bruit, lymphadenopathy, JVD or thyromegaly. LUNGS: With diminished breath sounds and soft crackles confined to the left lower lobe compared to that on the right side. CARDIOVASCULAR: Irregularly irregular rhythm, normal S1, S2. There is no S3, S4, murmur. ABDOMEN: Soft. Bowel sounds positive. EXTREMITIES: Are negative for cyanosis, clubbing or edema. NEUROLOGICAL: Intact mental status and no under cranial nerves. Motor Examination: No focal muscle bulk was seen ____. Sensory examination revealed normal pinprick, light touch, vibratory and position senses. Deep tendon reflexes were symmetric and hypoactive with absent Achilles responses. Gait and coordination is steady with normal coordination. LABORATORY DATA: CBC revealed white blood cells of 7.9 thousand, hemoglobin 10, hematocrit 30.6, platelet count 357,000. Chemistry revealed sodium of 143, potassium 3.9, chloride 108, CO2 of 27, BUN 5, creatinine 0.8, glucose is 96 and calcium 8.6. IMPRESSION: 1. Syncope versus seizure. 2. Left lobe pneumonia. 3. Multiple medical problems include systemic lupus erythematous, hypertension, osteoarthritis, paroxysmal benign positional vertigo. RECOMMENDATIONS: 1. Continue with current management initiated by Dr. Gauthier for pneumonia. 2. Vestibular exercise. 3. We will arrange for an EEG to be done on an outpatient basis. 4. Await medical report from [facility]. M Phuong JENKINS MD DR: CASIMIRO/antonio JOB#: [id number] / [id number]
[2017-10-14] MEDS: VANCOMYCIN 1.5 GM in IV NORMAL SALINE 500ML 500 ML IV SCH (01:15)
--- NOTE | 2017-10-14 05:18 | PN ---
DATE: SUBJECTIVE: A 66-year-old female in with pneumonia. The patient is resting fairly comfortably. She says she is feeling a little better, was still battling the IV antibiotic therapy. Her CTA is what picked up the left lower lobe pneumonia. The patient continues to make good progress. PHYSICAL EXAMINATION: VITAL SIGNS: Blood pressure 140/70, respiration 18, pulse 79, afebrile. GENERAL: The patient is alert and oriented. LUNGS: Diminished throughout, poor movement of air. CARDIOVASCULAR: Regular sinus rhythm. ABDOMEN: Soft, nontender. IMPRESSION: Pneumonia, left lower lobe community-acquired; probable metabolic encephalopathy; history of lupus; acute mental status change; lupus erythematosus; Sjogren ____ syndrome; osteoarthritis; hypertension; and benign positional vertigo. LYLE FIGUEREDO MD DR: BRANDON/antonio JOB#: [id number] / [id number]
[2017-10-14 05:22] VITALS: BP 119/71
[2017-10-14] MEDS: LEVOTHYROXINE 100 MCG TABLET PO SCH (06:08)
[2017-10-14] MEDS: HEPARIN PF for SUB-Q USE 5,000 UNIT/0.5 ML VIAL. SQ SCH (06:09)
[2017-10-14] MEDS: CEVIMELINE HCL 30 MG PO SCH (09:00)
[2017-10-14] MEDS: FAMOTIDINE 20 MG TABLET PO SCH (09:00)
[2017-10-14] MEDS: LACTOBACILLUS RHAMNOSUS GG 1 CAPSULE. PO SCH (09:23)
[2017-10-14] MEDS: CETIRIZINE HCL 10 MG TABLET PO SCH (09:23)
[2017-10-14] MEDS: SUCRALFATE 1 GM TABLET. PO SCH ×2 (09:23→11:47)
[2017-10-14] MEDS: CITALOPRAM 20 MG TABLET. PO SCH (09:23)
[2017-10-14] MEDS: predniSONE 5 MG TABLET PO SCH (09:23)
[2017-10-14] MEDS: MODAFINIL 100 MG TABLET PO SCH (09:23)
[2017-10-14] MEDS: cycloSPORINE 0.05% OPTH 1 DROP DROPERETTE OU SCH (09:25)
[2017-10-14] MEDS: PANTOPRAZOLE 40 MG TABLET. PO SCH (09:25)
[2017-10-14] MEDS: methylPREDNISolone 4 MG TABLET. PO SCH (09:25)
[2017-10-14] MEDS: HYDROXYCHLOROQUINE 200 MG TABLET PO SCH (09:26)
[2017-10-14 09:33] VITALS: BP 151/71
--- NOTE | 2017-10-14 11:16 | PN ---
DATE: SUBJECTIVE: The patient denies any new medical or neurological complaints. She did have a mild cough, but she denies chest pain or shortness of breath. The patient has not had any recurrent syncope since the admission. OBJECTIVE: GENERAL: Well-developed, well-nourished female, not in acute distress. VITAL SIGNS: Blood pressure 119/71, respiratory rate 19, pulse is 67 and regular, temperature 98.4, oxygen saturation 98% on room air. HEENT: Normocephalic, atraumatic, otherwise unremarkable. NECK: Supple. Negative for carotid bruit, no lymphadenopathy or thyromegaly. LUNGS: Clear to A and P. CARDIOVASCULAR: Regular rate and rhythm, normal S1, S2. There is no S3, S4 or murmur. ABDOMEN: Soft, bowel sounds positive. EXTREMITIES: Negative for cyanosis, clubbing, or pitting edema. NEUROLOGIC: Normal mental status and intact cranial nerves, there is no focal motor or sensory deficits. Deep tendon reflexes are symmetric and hypoactive with absent Achilles responses. Gait and coordination are normal. IMPRESSION: 1. Possible syncope versus seizure, no recurrence. 2. Left lower lobe pneumonia - improved. 3. Multiple medical problems include paroxysmal benign positional vertigo, osteoarthritis, systemic lupus erythematosus, hypertension, and Sjogren's disease. RECOMMENDATION: Continue with current management initiated by Dr. Gauthier. We will arrange for EEG to be done on an outpatient basis. LYLE GAUTHIER MD DR: BRANDON/antonio JOB#: [id number] / [id number]
[2017-10-14] MEDS ORDERED: FAMO20TA5 PO (12:36)
[2017-10-14] MEDS ORDERED: LEVO500T59 PO (12:36)
[2017-10-14 12:40] VITALS: BP 143/71
[2017-10-17] MEDS ORDERED: METHOTREXATE SODIUM 2.5 MG TABLET PO SCH (09:00)
== END 2017-10-14 13:30 | disposition home health service (06) | DRG 871 ==
LOC: ER 13:02 → ICU 16:53
PROVIDERS: ADMIT Family Medicine; ATTEND Family Medicine
DX: A41.9 Sepsis, unspecified organism (principal); J18.1 Lobar pneumonia, unspecified organism; G93.41 Metabolic encephalopathy; E44.0 Moderate protein-calorie malnutrition; M32.9 Systemic lupus erythematosus, unspecified; E11.9 Type 2 diabetes mellitus without complications; D50.9 Iron deficiency anemia, unspecified; M35.00 Sjogren syndrome, unspecified; W18.39XA Other fall on same level, initial encounter; E03.9 Hypothyroidism, unspecified; F32.9 Major depressive disorder, single episode, unspecified; I10 Essential (primary) hypertension; R32 Unspecified urinary incontinence; H81.10 Benign paroxysmal vertigo, unspecified ear; J45.909 Unspecified asthma, uncomplicated; I73.00 Raynaud's syndrome without gangrene; K21.9 Gastro-esophageal reflux disease without esophagitis; K27.9 Peptic ulcer, site unspecified, unspecified as acute or chronic, without hemorrhage or perforation; M19.90 Unspecified osteoarthritis, unspecified site; K44.9 Diaphragmatic hernia without obstruction or gangrene; Z79.899 Other long term (current) drug therapy; Z82.49 Family history of ischemic heart disease and other diseases of the circulatory system; Z84.89 Family history of other specified conditions; Z83.79 Family history of other diseases of the digestive system; Z88.1 Allergy status to other antibiotic agents; Z88.0 Allergy status to penicillin; Z88.2 Allergy status to sulfonamides; Z87.01 Personal history of pneumonia (recurrent); Y93.89 Activity, other specified; Y92.092 Bedroom in other non-institutional residence as the place of occurrence of the external cause; Y99.8 Other external cause status
CPT/HCPCS: 36415; 70450; 71045; 71275; 80048; 80053; 80076; 80202; 80307; 81001; 82140; 82947; 83605; 83880; 84443; 84484; 85025; 85379; 87641; 93005; 96361; 96365; 96375; J1956; J2310; J2550; J3370; J7040; J7509; J7512; P9612; Q0162; Q9967; 92610; 99285-25; G0479; J7030

== ENCOUNTER → 2019-06-01 | Outpatient (CLI) | payer OTHER, MEDICARE ==
[~2019-06-01] MED LIST: ALBU0.63 NEB; ALBU2.5V8 IH; BUPR522T PO; CETI10TA24 PO; CEVI30CA11 PO; CHOL100013 PO; CITA20TA6 PO; CITA40TA5 PO; CYAN10002 IM; CYCL-331 PO; CYCL1DRO EACHEYE; DIPH25CA58 PO; FAMO20TA5 PO; FLUT9.9S NS; FOLI1TAB16 PO; GLUC100018 PO; HYDR200T71 PO; IRON100V6 IJ; LEVO100T5 PO; LEVO500T59 PO; MAGN400C PO; METF10007 PO; METH2.5T PO; METH4TAB PO; METH4TAB2 PO; MODA100T26 PO; NIFE90TA PO; ONDA4TAB10 SL; ORPH-16 PO; PANT40TA3 PO; PRED-220 PO; PROM25SU32 RC; RANI300T3 PO; SUCR1TAB PO; TRAM50TA PO; UBID100C40 PO; XOPENEX0.63 MG/3 NEB; ZOLP12.52 PO; ZOLP5TAB5 PO; [UNRECOGNIZED DRUG - CODE] TP; calcium PO
== END | disposition home or self-care (01) ==
LOC: LAB 17:55
PROVIDERS: ATTEND Family Medicine
DX: E78.01 Familial hypercholesterolemia (principal); R06.09 Other forms of dyspnea; I45.9 Conduction disorder, unspecified; E03.9 Hypothyroidism, unspecified; R00.2 Palpitations
CPT/HCPCS: 36415; 82550; 83880; 84443; 84484; 85379

== ENCOUNTER 2020-02-25 22:16 | Inpatient (IN) | payer MEDICARE ==
[~2020-02-25] VITALS: Ht 160 cm; Wt 102.3 kg
[~2020-02-25 22:16] MED LIST changes: -CETI10TA24 PO; +CETI10TA74 PO
[2020-02-25] MEDS ORDERED: IV NORMAL SALINE 50ML 50 ML ONE (22:28)
[2020-02-25] MEDS ORDERED: ACETAMINOPHEN 500 MG TABLET PO ONE ×2 (22:28→22:30)
[2020-02-25] MEDS ORDERED: cefTRIAXone SODIUM 1 GM VIAL ONE (22:28)
[2020-02-25] MEDS ORDERED: 0.9 % SODIUM CHLORIDE 10 ML DISP.SYRIN. IV ONE (22:30)
--- NOTE | 2020-02-25 22:30 | PHYS DOC ---
Past History Past Medical History: Arthritis, Asthma, Hypertension, Other Past Surgical History: Cholecystectomy Smoking: Non-smoker Alcohol Use: None General Adult EDM: Chief Complaint: FEVER HPI: HPI: Patient is a 69 year old female who presents for evaluation of cough, fever, congestion, shortness of air and malaise. Onset of symptoms less than 12 hours ago. has been ill with similar complaints that started 2 days ago. Patient also had recurring episodes of vomiting. Patient feels very weak and is unable to stand or walk independently at this time. Patient arrived via EMS for evaluation. Dr. Gauthier is her physician. Patient has a history of prior pneumonia. There is no known exposure to COVID. Full COVID precautions initiated however Review of Systems: Review of Systems: Constitutional: has fever and chills Eyes: Denies change in visual acuity HENT: has nasal congestion and sore throat Respiratory: has cough and shortness of breath Cardiovascular: has chest pressure and edema GI: Denies abdominal pain, has nausea and vomiting, no bloody stools or diarrhea : Denies dysuria Musculoskeletal: Denies back pain has diffuse body aches Integument: Denies rash Neurologic: has headache, no focal weakness or sensory changes Endocrine: Denies polyuria or polydipsia Lymphatic: Denies swollen glands Psychiatric: Denies depression or anxiety Heart Score: HEART Score for Chest Pain: HEART Score for Chest Pain Response (Comments) Value History Slighlty/Non-Suspicious 0 ECG Nonspecific Repolarizatio 1 Risk Factors 1 or 2 Risk Factors 1 Troponin < Normal Limit 0 Total 2 Risk Factors: Risk Factors: DM, Current or recent (<one month) smoker, HTN, HLP, family history of CAD, obesity. Risk Scores: Score 0 - 3: 2.5% MACE over next 6 weeks - Discharge Home Score 4 - 6: 20.3% MACE over next 6 weeks - Admit for Clinical Observation Score 7 - 10: 72.7% MACE over next 6 weeks - Early Invasive Strategies Current Medications: Current Meds: Current Medications Medications (Trade) Dose Ordered Sig/Jaz Start Time Stop Time Status Last Admin Dose Admin Acetaminophen (Tylenol) 500 mg STK-MED ONCE 02/25/20 22:28 02/25/20 22:28 DC Ceftriaxone Sodium 1 gm/ Sodium Chloride 50 ml @ 100 mls/hr 1X ONCE 02/25/20 22:30 02/25/20 22:59 UNV Ceftriaxone Sodium (Rocephin) 1 gm STK-MED ONCE 02/25/20 22:28 02/25/20 22:28 DC Sodium Chloride 50 ml @ As Directed STK-MED ONCE 02/25/20 22:28 02/25/20 22:28 DC Sodium Chloride (Normal Saline Flush) 10 ml 1X ONCE 02/25/20 22:30 02/25/20 22:31 UNV Allergies: Allergies: Allergies Coded Allergies Type Severity Reaction Last Updated Verified Penicillins Allergy Intermediate Rash 10/13/17 Yes Sulfa (Sulfonamide Antibiotics) Allergy Intermediate Nausea 10/13/17 Yes clindamycin Allergy Intermediate Nausea 10/13/17 Yes Physical Exam: PE: Constitutional: Well developed, well nourished, moderate acute distress. [] HENT: Normocephalic, atraumatic, bilateral external ears normal, oropharynx moist, no oral exudates, nose normal. [] Eyes: PERRL, EOMI, conjunctiva normal, no discharge. [] Neck: Normal range of motion, no tenderness, supple, no stridor. [] Cardiovascular:Heart rate regular rhythm, no murmur [] Lungs & Thorax: Bilateral breath sounds somewhat diminished, mild to moderate wheezing present [] Abdomen: Bowel sounds normal, soft, no tenderness, no masses. [] Skin: Warm, dry, no erythema, no rash. [] Back: No tenderness. [] Extremities: No tenderness, no cyanosis, ROM intact, mild edema. [] Neurologic: Alert and oriented, normal motor function, normal sensory function, no focal deficits noted. [] Psychologic: Affect normal, judgement normal, mood normal. [] Current Patient Data: Labs: Laboratory Tests Test 02/25/20 22:45 White Blood Count 10.9 x10^3/uL Red Blood Count 3.65 x10^6/uL Hemoglobin 9.5 g/dL Hematocrit 29.3 % Mean Corpuscular Volume 80 fL Mean Corpuscular Hemoglobin 26 pg Mean Corpuscular Hemoglobin Concent 32 g/dL Red Cell Distribution Width 15.5 % Platelet Count 336 x10^3/uL Neutrophils (%) (Auto) 80 % Lymphocytes (%) (Auto) 6 % Monocytes (%) (Auto) 10 % Eosinophils (%) (Auto) 3 % Basophils (%) (Auto) 1 % Neutrophils # (Auto) 8.6 x10^3uL Lymphocytes # (Auto) 0.7 x10^3/uL Monocytes # (Auto) 1.1 x10^3/uL Eosinophils # (Auto) 0.3 x10^3/uL Basophils # (Auto) 0.1 x10^3/uL Platelet Estimate Pending Sodium Level 131 mmol/L Potassium Level 4.2 mmol/L Chloride Level 98 mmol/L Carbon Dioxide Level 20 mmol/L Anion Gap 13 Blood Urea Nitrogen 10 mg/dL Creatinine 0.9 mg/dL Estimated GFR (Cockcroft-Gault) 62.3 BUN/Creatinine Ratio 11 Glucose Level 110 mg/dL Lactic Acid Level 1.3 mmol/L Calcium Level 8.7 mg/dL Total Bilirubin 0.1 mg/dL Aspartate Amino Transf (AST/SGOT) 22 U/L Alanine Aminotransferase (ALT/SGPT) 25 U/L Alkaline Phosphatase 99 U/L Troponin I Quantitative 0.019 ng/mL TF-Klb-Q-Type Natriuretic Peptide 232 pg/mL Total Protein 6.9 g/dL Albumin 3.6 g/dL Albumin/Globulin Ratio 1.1 Current Medications Medications (Trade) Dose Ordered Sig/Jaz Route PRN Reason Start Time Stop Time Status Last Admin Dose Admin Sodium Chloride (Normal Saline Flush) 10 ml 1X ONCE IV 02/25/20 22:30 02/25/20 22:31 DC 02/25/20 22:57 Ceftriaxone Sodium 1 gm/ Sodium Chloride 50 ml @ 100 mls/hr 1X ONCE IV 02/25/20 22:30 02/25/20 22:59 DC 02/25/20 22:56 Sodium Chloride 50 ml @ As Directed STK-MED ONCE .ROUTE 02/25/20 22:28 02/25/20 22:28 DC Acetaminophen (Tylenol) 500 mg STK-MED ONCE PO 02/25/20 22:28 02/25/20 22:28 DC Ceftriaxone Sodium (Rocephin) 1 gm STK-MED ONCE .ROUTE 02/25/20 22:28 02/25/20 22:28 DC Acetaminophen (Tylenol) 1,000 mg 1X ONCE PO 02/25/20 22:30 02/25/20 22:31 DC 02/25/20 22:56 EKG: EKG: EKG read at 2310 showed normal sinus rhythm, left axis deviation, left anterior fascicular block, not STEMI [] Radiology/Procedures: Radiology/Procedures: Chest x-ray reviewed by me showed no acute findings, no consolidated infiltrates [] Course & Med Decision Making: Course & Med Decision Making Pertinent Labs and Imaging studies reviewed. (See chart for details) 0046 stable, there are no current beds available at this facility or [facility]. Patient will need admission to the hospital. Dr. Gauthier was contacted and patient will be boarded in this ER for now until we can get a bed available up the [place]. Patient is stable and doing well at this time. She is oxygenating well and her wheezing has improved. There is no visible pneumonia on her x-ray Dragon Disclaimer: Dragon Disclaimer: This electronic medical record was generated, in whole or in part, using a voice recognition dictation system. Departure Departure: Impression: Primary Impression: Asthma exacerbation Qualified Codes: J45.41 - Moderate persistent asthma with (acute) ex acerbation Additional Impressions: Person under investigation for COVID-19 Nausea & vomiting Qualified Codes: R11.2 - Nausea with vomiting, unspecified Disposition: ADMITTED INPATIENT Admitting Physician: Luca Gauthier Condition: STABLE Referrals: PCP,NO (PCP) Justification of Admission: Justification of Admission: Justification of Admission Dx: Yes Comments: Asthma exacerbation, COVID PUI COVID-19 Assessment COVID-19 Patient Risks: Age 65 or older: Yes Sign of co-morbidity: Yes Exp to person + for COVID: No Exp to PUI: No Travel from affected area: No Lower respiratory symptoms: Yes Fever: Yes Other: No PPE Use: Full PPE with N95 mask or PAPR: Yes SIENNA VELOZ DO Feb 25, 2020 22:30
[2020-02-25 23:18] LABS: BASO # 0.1 x10^3/uL (0.0-0.2); BASO % 1 % (0-3); EOS # 0.3 x10^3/uL (0.0-0.7); EOS % 3 % (0-3); HEMATOCRIT 29.3 % (36.0-47.0); HEMOGLOBIN 9.5 g/dL (12.0-15.5); LYMPH # 0.7 x10^3/uL (1.0-4.8); LYMPH % 6 % (24-48); MEAN CORPUSCULAR HEMOGLOBIN 26 pg (25-35); MEAN CORPUSCULAR HGB CONC 32 g/dL (31-37); MEAN CORPUSCULAR VOLUME 80 fL (79-100); MONO # 1.1 x10^3/uL (0.0-1.1); MONO % 10 % (0-9); NEUT # 8.6 x10^3uL (1.8-7.7); NEUT % 80 % (31-73); PLATELET COUNT 336 x10^3/uL (140-400); RED BLOOD COUNT 3.65 x10^6/uL (3.50-5.40); RED CELL DISTRIBUTION WIDTH 15.5 % (11.5-14.5); WHITE BLOOD COUNT 10.9 x10^3/uL (4.0-11.0)
[2020-02-25 23:39] LABS: CALCIUM 8.7 mg/dL (8.5-10.1); CREATININE 0.9 mg/dL (0.6-1.0); GFR 62.3; POTASSIUM 4.2 mmol/L (3.5-5.1)
[2020-02-25 23:42] LABS: ALBUMIN 3.6 g/dL (3.4-5.0); ALBUMIN/GLOBULIN RATIO 1.1 (1.0-1.7); TOTAL BILIRUBIN 0.1 mg/dL (0.2-1.0); TOTAL PROTEIN 6.9 g/dL (6.4-8.2)
--- NOTE | 2020-02-26 00:48 | RAD ---
INDICATION: Reason: FEVER, SOA / Spl. Instructions: / History: COMPARISON: October 10, 2017 FINDINGS: Single view of chest obtained. Cardiac silhouette is similar to prior. Repeat demonstration of fullness of the bilateral pulmonary hilum. No definite new region of consolidation or edema. IMPRESSION: * No focal airspace consolidation or edema. Electronically signed by: Jose Manuel Mayen MD (02/26/2020 12:45 AM) [id number]
[2020-02-26] MEDS ORDERED: ONDANSETRON PF 4 MG/2 ML VIAL. IVP PRN (01:00)
[2020-02-26] MEDS ORDERED: ALBUTEROL SULFATE 2.5 MG/3 ML NEBU. NEB PRN (01:15)
[2020-02-26] MEDS ORDERED: ALBUTEROL SULFATE 8GM INHALER. INH ONE (01:15)
[2020-02-26] MEDS ORDERED: methylPREDNISolone SOD SUCC PF 125 MG/2 ML VIAL. IV ONE (01:30)
--- NOTE | 2020-02-26 01:42 | EKG ---
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
[2020-02-26 02:29] LABS: % LYMPHS 6 % (24-48); % MONOS 7 % (0-10); % SEGS 87 % (35-66); PLT ESTIMATE ADEQUATE (ADEQUATE)
[2020-02-26] MEDS ORDERED: ONDANSETRON ODT 4 MG TAB.RAPDIS PO PRN (02:30)
[2020-02-26] MEDS ORDERED: NON FORMULARY ITEM (Albuterol Sulfate (Albuterol Sulfate Neb Soln) 1 VIAL) NEB PRN (02:30)
[2020-02-26] MEDS ORDERED: NON FORMULARY ITEM (Methylprednisolone (Medrol) 1 PKG) PO SCH (02:30)
[2020-02-26] MEDS ORDERED: traMADol 50 MG TABLET PO PRN (02:30)
[2020-02-26] MEDS ORDERED: ALBUTEROL SULFATE 2.5 MG/3 ML NEBU. IH PRN (02:30)
--- NOTE | 2020-02-26 02:35 | NUR ---
The patient, MIESHA GILMORE, 69 y/o, F admitted by LYLE FIGUEREDO MD, was given written information regarding hospital policies, unit procedures and contact persons. Valuables were checked and documented. pts vitals are stable. pt had complaints of a headache and received tramadol. pt had no complaints of shortness of air, nausea or vomiting on admission. pt is resting in bed. will continue to monitor.
[2020-02-26 02:48] VITALS: BP 145/72
[2020-02-26 05:54] VITALS: BP 144/68
[2020-02-26] MEDS: LEVOTHYROXINE 100 MCG TABLET PO SCH (06:08)
[2020-02-26] MEDS: PANTOPRAZOLE 40 MG TABLET. PO SCH ×2 (08:03→17:11)
[2020-02-26] MEDS: SUCRALFATE 1 GM TABLET. PO SCH ×4 (08:03→22:06)
[2020-02-26] MEDS: metFORMIN 500 MG TABLET PO SCH ×2 (08:03→17:10)
[2020-02-26] MEDS: CITALOPRAM 20 MG TABLET. PO SCH (08:03)
[2020-02-26] MEDS: CEVIMELINE HCL 30 MG PO SCH ×3 (08:05→21:00)
[2020-02-26] MEDS ORDERED: FAMOTIDINE 20 MG TABLET PO SCH (09:00)
[2020-02-26] MEDS ORDERED: FOLIC ACID 1 MG TABLET PO SCH (09:00)
[2020-02-26] MEDS ORDERED: HYDROXYCHLOROQUINE 200 MG TABLET PO SCH (09:00)
[2020-02-26] MEDS ORDERED: cycloSPORINE 0.05% OPTH 1 DROP DROPERETTE OU SCH (09:00)
[2020-02-26] MEDS ORDERED: METHOTREXATE SODIUM 2.5 MG TABLET PO SCH (09:00)
[2020-02-26] MEDS ORDERED: MODAFINIL 100 MG TABLET PO SCH (09:00)
[2020-02-26] MEDS ORDERED: CYANOCOBALAMIN (VITAMIN B-12) 1,000 MCG/ML VIAL. IM SCH (09:00)
[2020-02-26] MEDS ORDERED: methylPREDNISolone 4 MG TABLET. PO SCH (09:00)
[2020-02-26] MEDS ORDERED: levoFLOXacin 500 MG TABLET PO SCH (09:00)
[2020-02-26] MEDS ORDERED: FLU VACC QS 2020-21(6MOS+)/PF 0.5 ML SYRINGE. VAX IM ONE (09:00)
[2020-02-26] MEDS ORDERED: CETIRIZINE HCL 10 MG TABLET PO SCH (09:00)
[2020-02-26] MEDS ORDERED: FLUTICASONE 50MCG/NASAL SPRAY 16GM BOTTLE. NS SCH (09:00)
[2020-02-26] MEDS ORDERED: predniSONE 10 MG TABLET PO SCH (09:00)
[2020-02-26 09:01] LABS: BACTERIA,URINE 0 /HPF (0-FEW); BILIRUBIN,URINE NEG (NEG); CLARITY,URINE CLEAR; COLOR,URINE STRAW; GLUCOSE,URINE NEG (NEG); NITRITE,URINE NEG (NEG); RBC,URINE 0 /HPF (0-2); SQUAMOUS EPITHELIAL CELL,UR FEW /LPF; UROBILINOGEN,URINE 0.2 mg/dL (0.2 mg/dL); WBC,URINE OCC /HPF (0-4)
[2020-02-26 10:55] VITALS: BP 129/77
[2020-02-26] MEDS: HYDROXYCHLOROQUINE 200 MG TABLET PO SCH ×2 (11:07→22:06)
[2020-02-26] MEDS: CLOBETASOL EMOLLIENT 0.05% TOPICAL CREAM 15GM TUBE. TP SCH ×2 (11:07→21:00)
[2020-02-26] MEDS: IV NORMAL SALINE 1,000ML 1,000 ML IV SCH ×2 (11:08→22:07)
[2020-02-26] MEDS: methylPREDNISolone SOD SUCC PF 40 MG/ML VIAL. IV SCH ×2 (11:08→22:05)
--- NOTE | 2020-02-26 12:40 | HP ---
ADMIT DATE: 02/26/2020 HISTORY OF PRESENT ILLNESS: A 69-year-old female, last couple of days prior to admission became increasingly short of breath to the point where she could not move out of bed. The patient was having problems with severe cough, congestion, shortness of air, unable to get her air. The patient also had reoccurring episodes of nausea and vomiting, felt extremely weak and came in through the Emergency Room and was evaluated and was admitted for further evaluation and treatment of her situation with acute exacerbation of COPD with probable bronchitis or pneumonitis. PAST MEDICAL HISTORY: The patient has a very extensive complicated history, a history of asthma, syncope, Raynaud's phenomenon, pneumonia, osteoarthritis, endocrine disorders. She has had a history of systemic lupus erythematosus, Sjogren's disease. VACCINATIONS: Tetanus and influenza up-to-date. FAMILY HISTORY: Mother with lupus. Father with heart disease, gallbladder and appendicitis. ALLERGIES: TO PENICILLIN, SULFUR AND CLINDAMYCIN. SOCIAL HISTORY: No smoking, alcohol or drug use. Lives at home with her who had been out earlier in the week, although he has not been out with anybody as far as they know. The patient denies any smoking, alcohol or drug use. REVIEW OF SYSTEMS: Generalized weakness, nausea, extreme shortness of breath, no chest discomfort. Neurologically, the patient is stable, baseline for her, joints achy. She has been without her hydroxychloroquine for 4 days and has not been able to get it because of the shortage. Her joints are bothering her. PHYSICAL EXAMINATION: GENERAL: The patient otherwise is a very pleasant white female, in a moderate amount of distress. VITAL SIGNS: Blood pressure 145/72, respiratory rate 20, pulse 82, temperature 99.6. HEENT: The patient's head was atraumatic, normocephalic. Eyes: PERRLA without jaundice. Mouth and throat were normal. NECK: Supple. LUNGS: Diminished throughout, poor movement of air. CARDIOVASCULAR: Regular sinus rhythm, S1, S2, without murmur, rub, thrill, or extra heart sounds. ABDOMEN: The patient's abdomen is soft, nontender, no rebounding or guarding. Positive bowel sounds, no hepatosplenomegaly noted. EXTREMITIES: No clubbing, cyanosis or edema. NEUROLOGIC: The patient is alert and oriented x 3. LABORATORY DATA: The patient's white count 10, hemoglobin 9.5 and 29. Adequate differential, 131, 4.2, BUN and creatinine on her chemistries, troponin negative. BNP of 232. Urine unremarkable. IMAGING: Chest x-ray was basically unremarkable with no focal airspace consolidations. IMPRESSION: Acute exacerbation of chronic obstructive pulmonary disease with bronchitis, acute respiratory on top of chronic respiratory distress, systemic lupus erythematosus, Sjogren's disease, nausea. The patient will be admitted for further evaluation, IV Solu-Medrol, aggressive pulmonary toilet. LYLE FIGUEREDO MD DR: BRANDON/antonio JOB#: [id number] / [id number]
[2020-02-26 15:06] VITALS: BP 138/71
[2020-02-26] MEDS ORDERED: METOPROLOL TARTRATE 5 MG/5 ML VIAL. IV ONE (18:09)
[2020-02-26] MEDS: METOPROLOL TARTRATE 5 MG/5 ML VIAL. IV ONE ×2 (18:15→18:17)
[2020-02-26 19:15] VITALS: BP 103/64
[2020-02-26] MEDS ORDERED: ZOLPIDEM 5 MG TABLET. PO SCH (21:00)
[2020-02-26] MEDS ORDERED: BUPROPION HBR PO SCH (21:00)
[2020-02-26 23:15] VITALS: BP 135/77
[2020-02-27 06:05] VITALS: BP 124/76
[2020-02-27] MEDS: LEVOTHYROXINE 100 MCG TABLET PO SCH (06:08)
[2020-02-27] MEDS: CEVIMELINE HCL 30 MG PO SCH ×2 (07:05→10:15)
[2020-02-27 07:23] LABS: BASO % 1 % (0-3); EOS % 0 % (0-3); HEMATOCRIT 29.2 % (36.0-47.0); HEMOGLOBIN 9.1 g/dL (12.0-15.5); LYMPH # 0.9 x10^3/uL (1.0-4.8); LYMPH % 10 % (24-48); MEAN CORPUSCULAR HEMOGLOBIN 26 pg (25-35); MEAN CORPUSCULAR HGB CONC 31 g/dL (31-37); MEAN CORPUSCULAR VOLUME 84 fL (79-100); MONO # 0.8 x10^3/uL (0.0-1.1); MONO % 9 % (0-9); NEUT # 7.5 x10^3uL (1.8-7.7); NEUT % 80 % (31-73); PLATELET COUNT 329 x10^3/uL (140-400); RED BLOOD COUNT 3.47 x10^6/uL (3.50-5.40); RED CELL DISTRIBUTION WIDTH 15.9 % (11.5-14.5); WHITE BLOOD COUNT 9.3 x10^3/uL (4.0-11.0)
[2020-02-27 07:31] LABS: CALCIUM 8.1 mg/dL (8.5-10.1); CREATININE 0.9 mg/dL (0.6-1.0); GFR 62.3; POTASSIUM 4.2 mmol/L (3.5-5.1)
[2020-02-27] MEDS: CLOBETASOL EMOLLIENT 0.05% TOPICAL CREAM 15GM TUBE. TP SCH (09:00)
[2020-02-27] MEDS: metFORMIN 500 MG TABLET PO SCH (09:16)
[2020-02-27] MEDS: HYDROXYCHLOROQUINE 200 MG TABLET PO SCH (09:16)
[2020-02-27] MEDS: SUCRALFATE 1 GM TABLET. PO SCH ×2 (09:16→11:58)
[2020-02-27] MEDS: PANTOPRAZOLE 40 MG TABLET. PO SCH (09:17)
[2020-02-27] MEDS: CITALOPRAM 20 MG TABLET. PO SCH (09:17)
[2020-02-27] MEDS: methylPREDNISolone SOD SUCC PF 40 MG/ML VIAL. IV SCH (09:17)
[2020-02-27 11:26] VITALS: BP 132/80
[2020-02-27] MEDS: IV NORMAL SALINE 1,000ML 1,000 ML IV SCH (11:59)
[2020-02-27] MEDS ORDERED: PRED-220 PO (12:43)
--- NOTE | 2020-02-27 14:11 | NUR ---
Patient left in a stable condition. Patient's picked her up. Patient left A&Ox4 with the assistance of a wheelchair.
--- NOTE | 2020-02-27 16:33 | DS ---
DATE OF DISCHARGE: 02/27/2020 HOSPITAL COURSE: A 69-year-old female who was initially admitted with increased shortness of breath to the point where she could not breathe very well, severe cough, congestion, shortness of air, had to be brought in by EMS to the Emergency Room. The patient was noted to have acute exacerbation of chronic obstructive pulmonary disease with probable bronchitis and pneumonitis. COVID-19 was negative; however, the patient has made good progress. She was placed on steroids, aggressive pulmonary toilet and made good progress during the rest of her hospitalization. Her iron levels were low at 17. Magnesium level was low at 1.6. She had been taking some medicine for her what she thought was a oak mite bite on her left flank, which turned out I think to be a post-herpetic rash. The patient otherwise made excellent progress. She was breathing without any difficulty. Denied any chest pain, shortness of breath and the clobetasol cream that was applied to her left flank area helped her recover from that. Her last blood pressure 132/80, respiratory rate 20, pulse 63. LABORATORY DATA: The patient's labs as noted, she is slightly anemic at 9.1 and 29.2. The patient's chemistries were basically normal including the BUN and creatinine 13 and 0.9. Iron of 17. Magnesium 1.6. Calcium slightly low. BNP 232, glucose 110. The patient otherwise will be discharged home, follow up as an outpatient for several issues as noted above. IMPRESSION: Acute exacerbation of chronic obstructive pulmonary disease with acute bronchitis, iron deficiency anemia, hypomagnesemia, history of systemic lupus erythematosus and history of Sjogren's disease. The patient will be discharged home on a regular diet, decreased activity, and follow up accordingly for the above-mentioned medical issues as noted above. LYLE FIGUEREDO MD DR: BRANDON/antonio JOB#: [id number] / [id number]
--- NOTE | 2020-02-28 11:17 | EKG ---
[facility] [address] [place] [id number] Test Date: 2020-02-28 Test Time: 10:13:08 Pat Name: MIESHA GILMORE Department: Room: 113 A Gender: F Bumper Operator: REI : 1950 Requested By: LYLE FIGUEREDO Order Number: [id number] Reading MD: Measurements Intervals [place] Rate: 74 P: 69 SD: 172 QRS: 14 QRSD: 82 T: 28 QT: 372 QTc: 413 Interpretive Statements SINUS RHYTHM NORMAL ECG RI6.02 No previous ECG available for comparison
--- NOTE | 2020-03-01 09:48 | NUR ---
IP: notified patient of COVID result on second attempt, left message to call back 02/28/am. Discussed precautions, there were no questions at this time.
== END 2020-02-27 14:12 | disposition home or self-care (01) | DRG 177 ==
LOC: ER 22:16 → 1 SOUTH 02-26 00:50 → UNDODISIN 02-27 12:12
PROVIDERS: ADMIT Family Medicine; ATTEND Family Medicine
DX: U07.1 COVID-19 (principal); J18.9 Pneumonia, unspecified organism; J44.0 Chronic obstructive pulmonary disease with (acute) lower respiratory infection; J45.41 Moderate persistent asthma with (acute) exacerbation; J44.1 Chronic obstructive pulmonary disease with (acute) exacerbation; J20.9 Acute bronchitis, unspecified; I10 Essential (primary) hypertension; I73.00 Raynaud's syndrome without gangrene; M32.9 Systemic lupus erythematosus, unspecified; M35.00 Sjogren syndrome, unspecified; Z82.49 Family history of ischemic heart disease and other diseases of the circulatory system; Z87.01 Personal history of pneumonia (recurrent); M19.90 Unspecified osteoarthritis, unspecified site; Z20.828 Contact with and (suspected) exposure to other viral communicable diseases; D50.9 Iron deficiency anemia, unspecified; E83.42 Hypomagnesemia; Z88.0 Allergy status to penicillin; Z88.2 Allergy status to sulfonamides
CPT/HCPCS: 36415; 71045; 80048; 80053; 81001; 83540; 83550; 83605; 83735; 83880; 84145; 84484; 85007; 85025; 85379; 87040; 90471; 93005; 96374; 96375; J0696; J2920; J2930; J3490; J7613; 90686; 99285-25; J7030; U0003-CS

== ENCOUNTER 2020-03-03 12:42 | Inpatient (IN) | payer MEDICARE ==
[~2020-03-03] VITALS: Ht 160 cm; Wt 102.1 kg
--- NOTE | 2020-03-03 13:11 | RAD ---
INDICATION: Reason: SOA, EXPOSURED TO COVID-19 INFECTION / Spl. Instructions: / History: COMPARISON: February 25, 2020 FINDINGS: Single view of chest obtained. Cardiac silhouette is not enlarged with calcific atherosclerosis identified. Mild right perihilar opacity. Degenerative changes the spine. Fullness of right pulmonary shameka. Could be from prominent pulmonary artery. IMPRESSION: * Mild right perihilar opacity. A small focus of atelectasis or infiltrate could have this appearance. Electronically signed by: Jose Manuel Mayen MD (03/03/2020 1:09 PM) [id number]
[2020-03-03 13:48] LABS: BASO # 0.1 x10^3/uL (0.0-0.2); BASO % 1 % (0-3); EOS % 0 % (0-3); HEMATOCRIT 31.3 % (36.0-47.0); HEMOGLOBIN 9.8 g/dL (12.0-15.5); LYMPH # 0.8 x10^3/uL (1.0-4.8); LYMPH % 11 % (24-48); MEAN CORPUSCULAR HEMOGLOBIN 26 pg (25-35); MEAN CORPUSCULAR HGB CONC 31 g/dL (31-37); MEAN CORPUSCULAR VOLUME 82 fL (79-100); MONO # 0.5 x10^3/uL (0.0-1.1); MONO % 7 % (0-9); NEUT # 5.8 x10^3uL (1.8-7.7); NEUT % 81 % (31-73); PLATELET COUNT 286 x10^3/uL (140-400); RED BLOOD COUNT 3.83 x10^6/uL (3.50-5.40); RED CELL DISTRIBUTION WIDTH 15.3 % (11.5-14.5); WHITE BLOOD COUNT 7.2 x10^3/uL (4.0-11.0)
[2020-03-03 13:57] LABS: CALCIUM 8.2 mg/dL (8.5-10.1); GFR 55.1
[2020-03-03 14:03] LABS: ALBUMIN 2.9 g/dL (3.4-5.0); ALBUMIN/GLOBULIN RATIO 0.7 (1.0-1.7); TOTAL BILIRUBIN 0.2 mg/dL (0.2-1.0); TOTAL PROTEIN 6.9 g/dL (6.4-8.2)
--- NOTE | 2020-03-03 14:36 | EKG ---
[facility] ED [facility] [address] [place] [id number] Test Date: 2020-03-03 Test Time: 14:21:49 Pat Name: MIESHA GILMORE Department: Room: Gender: F Director Phone: : 1950 Requested By: LYLE HALE Order Number: [id number] Reading MD: Measurements Intervals [place] Rate: 70 P: 62 DE: 134 QRS: -29 QRSD: 112 T: 17 QT: 406 QTc: 441 Interpretive Statements SINUS RHYTHM LEFTWARD AXIS R-S TRANSITION ZONE IN V LEADS DISPLACED TO THE LEFT LEFT VENTRICULAR HYPERTROPHY ABNORMAL ECG RI6.02 No previous ECG available for comparison
--- NOTE | 2020-03-03 15:14 | PHYS DOC ---
Past History Past Medical History: Arthritis, Asthma, Hypertension, Other Additional Past Medical Histor: Lupus Past Surgical History: Cholecystectomy Smoking: Non-smoker Alcohol Use: None General Adult EDM: Chief Complaint: SHORTNESS OF BREATH HPI: HPI: Patient is a 69-year-old female who was brought here by EMS from home due to trouble breathing and cough. Has been sick for about 10 days now, she was diagnosed with COVID-19 infection about 1 week ago. Patient has been having fever off and on. Complaint of chest pain whenever she coughs. Patient denies any nausea vomiting, no abdominal pain. Review of Systems: Review of Systems: Constitutional: Denies fever or chills Eyes: Denies change in visual acuity HENT: Denies nasal congestion or sore throat Respiratory: Positive for cough and trouble breathing. Cardiovascular: Denies chest pain or edema GI: Denies abdominal pain, nausea, vomiting, bloody stools or diarrhea : Denies dysuria Musculoskeletal: Denies back pain or joint pain Integument: Denies rash Neurologic: Denies headache, focal weakness or sensory changes Endocrine: Denies polyuria or polydipsia Lymphatic: Denies swollen glands Psychiatric: Denies depression or anxiety Heart Score: Risk Factors: Risk Factors: DM, Current or recent (<one month) smoker, HTN, HLP, family history of CAD, obesity. Risk Scores: Score 0 - 3: 2.5% MACE over next 6 weeks - Discharge Home Score 4 - 6: 20.3% MACE over next 6 weeks - Admit for Clinical Observation Score 7 - 10: 72.7% MACE over next 6 weeks - Early Invasive Strategies Allergies: Allergies: Allergies Coded Allergies Type Severity Reaction Last Updated Verified Penicillins Allergy Intermediate Rash 10/13/17 Yes Sulfa (Sulfonamide Antibiotics) Allergy Intermediate Nausea 10/13/17 Yes clindamycin Allergy Intermediate Nausea 10/13/17 Yes Physical Exam: PE: Constitutional: Well developed, well nourished, no acute distress, non-toxic appearance. [] HENT: Normocephalic, atraumatic, bilateral external ears normal, oropharynx moist, no oral exudates, nose normal. [] Eyes: PERRLA, EOMI, conjunctiva normal, no discharge. [] Neck: Normal range of motion, no tenderness, supple, no stridor. [] Cardiovascular:Heart rate regular rhythm, no murmur [] Lungs & Thorax: Bilateral breath sounds clear to auscultation [] Abdomen: Bowel sounds normal, soft, no tenderness, no masses, no pulsatile masses. [] Skin: Warm, dry, no erythema, no rash. [] Back: No tenderness, no CVA tenderness. [] Extremities: No tenderness, no cyanosis, no clubbing, ROM intact, no edema. [] Neurologic: Alert and oriented X 3, normal motor function, normal sensory function, no focal deficits noted. [] Psychologic: Affect normal, judgement normal, mood normal. [] Current Patient Data: Labs: Laboratory Tests Test 03/03/20 13:30 White Blood Count 7.2 x10^3/uL (4.0-11.0) Red Blood Count 3.83 x10^6/uL (3.50-5.40) Hemoglobin 9.8 g/dL (12.0-15.5) L Hematocrit 31.3 % (36.0-47.0) L Mean Corpuscular Volume 82 fL (79-100) Mean Corpuscular Hemoglobin 26 pg (25-35) Mean Corpuscular Hemoglobin Concent 31 g/dL (31-37) Red Cell Distribution Width 15.3 % (11.5-14.5) H Platelet Count 286 x10^3/uL (140-400) Neutrophils (%) (Auto) 81 % (31-73) H Lymphocytes (%) (Auto) 11 % (24-48) L Monocytes (%) (Auto) 7 % (0-9) Eosinophils (%) (Auto) 0 % (0-3) Basophils (%) (Auto) 1 % (0-3) Neutrophils # (Auto) 5.8 x10^3uL (1.8-7.7) Lymphocytes # (Auto) 0.8 x10^3/uL (1.0-4.8) L Monocytes # (Auto) 0.5 x10^3/uL (0.0-1.1) Eosinophils # (Auto) 0.0 x10^3/uL (0.0-0.7) Basophils # (Auto) 0.1 x10^3/uL (0.0-0.2) Platelet Estimate Pending Sodium Level 129 mmol/L (136-145) L Potassium Level 4.0 mmol/L (3.5-5.1) Chloride Level 93 mmol/L (98-107) L Carbon Dioxide Level 24 mmol/L (21-32) Anion Gap 12 (6-14) Blood Urea Nitrogen 10 mg/dL (7-20) Creatinine 1.0 mg/dL (0.6-1.0) Estimated GFR (Cockcroft-Gault) 55.1 BUN/Creatinine Ratio 10 (6-20) Glucose Level 114 mg/dL (70-99) H Calcium Level 8.2 mg/dL (8.5-10.1) L Magnesium Level 2.0 mg/dL (1.8-2.4) Total Bilirubin 0.2 mg/dL (0.2-1.0) Aspartate Amino Transferase (AST) 27 U/L (15-37) Alanine Aminotransferase (ALT) 18 U/L (14-59) Alkaline Phosphatase 73 U/L (46-116) Troponin I Quantitative < 0.017 ng/mL (0-0.055) KK-Xqg-A-Type Natriuretic Peptide 95 pg/mL (0-124) Total Protein 6.9 g/dL (6.4-8.2) Albumin 2.9 g/dL (3.4-5.0) L Albumin/Globulin Ratio 0.7 (1.0-1.7) L Vital Signs: Vital Signs Date Time Temp Pulse Resp B/P (MAP) Pulse Ox O2 Delivery O2 Flow Rate FiO2 03/03/20 12:50 99.8 74 16 120/89 (99) 93 Nasal Cannula 2.0 Radiology/Procedures: Radiology/Procedures: [][address] [address] IMAGING REPORT Signed PATIENT: MIESHA GILMORE ACCOUNT: [id number] : 1950 LOCATION: ER AGE: 69 SEX: F EXAM STATUS: PRE ER ORD. PHYSICIAN: LYLE HALE DO REASON: SOA, EXPOSURED TO COVID-19 INFECTION PROCEDURE: CHEST AP ONLY INDICATION: Reason: SOA, EXPOSURED TO COVID-19 INFECTION / Spl. Instructions: / History: COMPARISON: February 25, 2020 FINDINGS: Single view of chest obtained. Cardiac silhouette is not enlarged with calcific atherosclerosis identified. Mild right perihilar opacity. Degenerative changes the spine. Fullness of right pulmonary shameka. Could be from prominent pulmonary artery. IMPRESSION: * Mild right perihilar opacity. A small focus of atelectasis or infiltrate could have this appearance. Electronically signed by: Ney Acuña MD (03/03/2020 1:09 PM) [id number] DICTATED AND SIGNED BY: NEY ACUÑA MD DATE: 03/03/20 7248 CC: LYLE FIGUEREDO MD; LYLE HALE DO ~ [place] [address] IMAGING REPORT Signed PATIENT: MIESHA GILMORE ACCOUNT: [id number] : 1950 LOCATION: ER AGE: 69 SEX: F EXAM STATUS: REG ER ORD. PHYSICIAN: LYLE HALE DO REASON: chest pain, soa, infection with COVID-19 PROCEDURE: CT ANGIOGRAPHY CHEST Study: CT CHEST WITH CONTRAST - PULMONARY ANGIOGRAM History: Chest pain, shortness of breath, Covid Comparison: CT chest 10/18/2017. Chest radiograph 07/22/2019 Technique: Helical CT of the chest performed after the administration of 100 mL intravenous contrast and timed for angiographic evaluation of the pulmonary arteries per PE protocol. Coronal and sagittal 3D MIP reformations were obtained. One or more of the following individualized dose reduction techniques were utilized for this examination: 1. Automated exposure control 2. Adjustment of the mA and/or kV according to patient size 3. Use of iterative reconstruction technique. Findings: Pulmonary Arteries: Contrast bolus is adequate. There is mild motion artifact, limiting evaluation of distal subsegmental pulmonary artery. No acute pulmonary embolism. Heart/Systemic Vasculature: The heart is normal size. No pericardial effusion. The thoracic aorta is normal in caliber. Mediastinum: Mild increased size of right hilar and subcarinal lymph nodes, likely reactive. Unchanged moderate hiatal hernia. Lungs: There are patchy bilateral perihilar and peripheral round glass opacities, greater in the lower lobes and greater on the right. Mild airway wall thickening. No pleural effusion. Neck/Axilla/Body Wall: The visualized portion of thyroid gland is normal. No axillary lymphadenopathy. Upper Abdomen: Post cholecystectomy. Bones: No acute osseous abnormality. IMPRESSION: 1. No acute pulmonary embolism. Motion artifact limits evaluation of distal pulmonary arteries. 2. Patchy bilateral peripheral predominant groundglass opacities consistent with atypical infection. Electronically signed by: Jenniffer Zuleta MD (03/03/2020 4:27 PM) [id number] DICTATED AND SIGNED BY: JENNIFFER ZULETA MD DATE: 03/03/20 1627 CC: LYLE FIGUEREDO MD; LYLE HALE DO ~ Course & Med Decision Making: Course & Med Decision Making Pertinent Labs and Imaging studies reviewed. (See chart for details) Patient is a 69-year-old female who was infected with COVID-19 presented with cough and trouble breathing. Her oxygen saturation is low on room air, she is not on oxygen at home. Therefore she will need to be admitted to hospital. X- ray showed right side infiltration, patient was started on Levaquin IV. Discussed with her family physician Dr. Figueredo who agrees to admit the patient. Chrissy Disclaimer: Chrissy Disclaimer: This electronic medical record was generated, in whole or in part, using a voice recognition dictation system. Departure Departure: Impression: Primary Impression: Pneumonia due to 2019-nCoV Additional Impression: Hypoxia Disposition: ADMITTED INPATIENT Admitting Physician: Lyle Figueredo Condition: STABLE Referrals: LYLE FIGUEREDO MD (PCP) LYLE HALE DO Mar 03, 2020 15:14
[2020-03-03] MEDS ORDERED: IOHEXOL 350 MG/ML 100 ML VIAL. IV ONE (15:30)
[2020-03-03] MEDS ORDERED: CONTRAST GIVEN. MC PRN (15:30)
--- NOTE | 2020-03-03 16:30 | RAD ---
Study: CT CHEST WITH CONTRAST - PULMONARY ANGIOGRAM History: Chest pain, shortness of breath, Covid Comparison: CT chest 10/18/2017. Chest radiograph 07/22/2019 Technique: Helical CT of the chest performed after the administration of 100 mL intravenous contrast and timed for angiographic evaluation of the pulmonary arteries per PE protocol. Coronal and sagittal 3D MIP reformations were obtained. One or more of the following individualized dose reduction techniques were utilized for this examination: 1. Automated exposure control 2. Adjustment of the mA and/or kV according to patient size 3. Use of iterative reconstruction technique. Findings: Pulmonary Arteries: Contrast bolus is adequate. There is mild motion artifact, limiting evaluation of distal subsegmental pulmonary artery. No acute pulmonary embolism. Heart/Systemic Vasculature: The heart is normal size. No pericardial effusion. The thoracic aorta is normal in caliber. Mediastinum: Mild increased size of right hilar and subcarinal lymph nodes, likely reactive. Unchanged moderate hiatal hernia. Lungs: There are patchy bilateral perihilar and peripheral round glass opacities, greater in the lower lobes and greater on the right. Mild airway wall thickening. No pleural effusion. Neck/Axilla/Body Wall: The visualized portion of thyroid gland is normal. No axillary lymphadenopathy. Upper Abdomen: Post cholecystectomy. Bones: No acute osseous abnormality. IMPRESSION: 1. No acute pulmonary embolism. Motion artifact limits evaluation of distal pulmonary arteries. 2. Patchy bilateral peripheral predominant groundglass opacities consistent with atypical infection. Electronically signed by: Jenniffer Zuleta MD (03/03/2020 4:27 PM) [id number]
[2020-03-03] MEDS ORDERED: IV NORMAL SALINE 1,000ML 1,000 ML IV ONE (16:45)
[2020-03-03 17:16] LABS: % ATYL 1 % (0-0); % BANDS 7 % (0-9); % BASOS 1 % (0-3); % EOS 1 % (0-5); % LYMPHS 12 % (24-48); % MONOS 9 % (0-10); % SEGS 69 % (35-66)
[2020-03-03] MEDS ORDERED: IV NORMAL SALINE 1,000ML 1,000 ML IV SCH (18:02)
[2020-03-03] MEDS ORDERED: ONDANSETRON PF 4 MG/2 ML VIAL. IVP PRN (18:15)
[2020-03-03] MEDS ORDERED: ONDANSETRON ODT 4 MG TAB.RAPDIS PO PRN (18:30)
[2020-03-03 18:42] VITALS: BP 131/62
--- NOTE | 2020-03-03 18:45 | NUR ---
The patient, MIESHA GILMORE, 69 y/o, F admitted by LYLE FIGUEREDO MD, was given written information regarding hospital policies, unit procedures and contact persons. pt brought to ICU 4 with ED and EMS staff on a gurney. A&Ox4, VSS. Valuables were checked and oriented to room. Medications and medical hx reviewed with patient
[2020-03-03 20:00] VITALS: BP 129/56
[2020-03-03] MEDS ORDERED: IPRATRPIUM/ALBUTEROL 0.5/2.5MG 3 ML NEBU. NEB SCH (20:00)
[2020-03-03] MEDS: ACETAMINOPHEN 325 MG TABLET PO PRN (20:57)
[2020-03-03] MEDS: SUCRALFATE 1 GM TABLET. PO SCH (20:57)
[2020-03-03] MEDS: PANTOPRAZOLE 40 MG TABLET. PO SCH (20:57)
[2020-03-03] MEDS: FAMOTIDINE 20 MG TABLET PO SCH (20:57)
[2020-03-03] MEDS: methylPREDNISolone SOD SUCC PF 40 MG/ML VIAL. IV SCH (20:57)
[2020-03-03] MEDS: ZOLPIDEM 5 MG TABLET. PO PRN (20:58)
[2020-03-03] MEDS: CEVIMELINE HCL 30 MG PO SCH (21:00)
[2020-03-03 21:19] LABS: PLT ESTIMATE ADEQUATE (ADEQUATE)
[2020-03-03] MEDS: IPRATROPIUM/ALBUTEROL 20/100mcg/INH INHALER. INH SCH (22:30)
[2020-03-03 23:14] VITALS: BP 110/60
[2020-03-04] VITALS (9 sets, daily range): BP systolic 99–124; BP diastolic 51–76
[2020-03-04] MEDS: methylPREDNISolone SOD SUCC PF 40 MG/ML VIAL. IV SCH ×3 (05:49→20:55)
[2020-03-04] MEDS: LEVOTHYROXINE 100 MCG TABLET PO SCH (05:49)
[2020-03-04 06:36] LABS: BASO % 0 % (0-3); EOS % 0 % (0-3); HEMATOCRIT 31.8 % (36.0-47.0); LYMPH # 0.4 x10^3/uL (1.0-4.8); LYMPH % 13 % (24-48); MEAN CORPUSCULAR HEMOGLOBIN 26 pg (25-35); MEAN CORPUSCULAR HGB CONC 31 g/dL (31-37); MEAN CORPUSCULAR VOLUME 81 fL (79-100); MONO # 0.1 x10^3/uL (0.0-1.1); MONO % 4 % (0-9); NEUT # 2.5 x10^3uL (1.8-7.7); NEUT % 83 % (31-73); PLATELET COUNT 282 x10^3/uL (140-400); RED BLOOD COUNT 3.91 x10^6/uL (3.50-5.40); RED CELL DISTRIBUTION WIDTH 15.8 % (11.5-14.5)
[2020-03-04 06:51] LABS: CALCIUM 8.3 mg/dL (8.5-10.1); CREATININE 0.8 mg/dL (0.6-1.0); GFR 71.3; POTASSIUM 4.5 mmol/L (3.5-5.1)
[2020-03-04] MEDS ORDERED: metFORMIN 500 MG TABLET PO SCH (08:00)
[2020-03-04] MEDS: IPRATROPIUM/ALBUTEROL 20/100mcg/INH INHALER. INH SCH ×4 (08:00→20:00)
[2020-03-04] MEDS: SUCRALFATE 1 GM TABLET. PO SCH ×4 (08:03→20:01)
[2020-03-04] MEDS: FAMOTIDINE 20 MG TABLET PO SCH ×2 (08:19→20:01)
[2020-03-04] MEDS: PANTOPRAZOLE 40 MG TABLET. PO SCH ×2 (08:19→20:02)
[2020-03-04] MEDS: CITALOPRAM 20 MG TABLET. PO SCH (08:19)
[2020-03-04] MEDS ORDERED: HYDROXYCHLOROQUINE 200 MG TABLET PO SCH ×2 (09:00)
[2020-03-04] MEDS ORDERED: AZITHROMYCIN 250 MG TABLET. PO SCH (09:00)
[2020-03-04] MEDS: CEVIMELINE HCL 30 MG PO SCH ×3 (09:00→20:20)
[2020-03-04] MEDS ORDERED: LACTOBACILLUS RHAMNOSUS GG 1 CAPSULE. PO SCH (09:00)
[2020-03-04] MEDS ORDERED: levoFLOXacin 500 MG TABLET PO SCH (09:00)
[2020-03-04] MEDS ORDERED: ALBUTEROL SULFATE 8GM INHALER. INH ONE (09:15)
--- NOTE | 2020-03-04 09:25 | HP ---
ADMIT DATE: 03/04/2020 HISTORY OF PRESENT ILLNESS: A 69-year-old female recently diagnosed with COVID-19 and had been doing somewhat better and was discharged home. The patient, however, here in the last few days has become increasingly more ill with increased fever, chills, chest discomfort with breathing. The patient denies any nausea, vomiting, diarrhea or change in mentation. Her has recently been admitted to another facility to be placed on a vent, they have been visiting some type of a wedding here and not too long ago, but did wear masks. In any case, the patient was admitted for further evaluation of acute respiratory failure along with COVID-19, continued treatment. PAST MEDICAL HISTORY: Asthma, syncope, Raynaud's phenomenon. She has had history of pneumonia, osteoarthritis, endocrine disorders, systemic lupus erythematosus, disease. Tetanus and influenza vaccines are up-to-date. She has had some history of syncopal spells. ALLERGIES: PENICILLIN, SULFUR, CLINDAMYCIN. FAMILY HISTORY: Noncontributory. SOCIAL HISTORY: Denies smoking, alcohol or drug use. She is a full code. REVIEW OF SYSTEMS: Has some odd taste in her mouth. Other than that, she denies any headaches, visual change, blurred vision, double vision. Does have some shortness of breath, chest discomfort or burning sensation in her chest when she does take a deep breath. The patient otherwise does have occasional wheezing. Denies abdominal pain. Denies any diarrhea, may be occasional nausea, but nothing recent here and negative for vomiting. Denies any diarrhea. Neurologically baseline. PHYSICAL EXAMINATION: GENERAL: Pleasant white female, looks very pale and ill-appearing more so than she did a week ago. VITAL SIGNS: Blood pressure 129/56, respiratory rate 18, temperature 100, pulse is high as approximately 75. HEENT: The patient's head was atraumatic, normocephalic. Eyes: PERRLA without jaundice. Mouth and throat were normal. NECK: Supple, no lymphadenopathy was noted. LUNGS: Diminished throughout, but basically clear. CARDIOVASCULAR: Regular sinus rhythm, S1, S2, without murmur, rub, thrill, or extra heart sound. ABDOMEN: Soft, nontender. EXTREMITIES: No clubbing, cyanosis. Trace edema. NEUROLOGIC: The patient is alert and oriented. Speech is fluent, spontaneous, appropriate, appropriate affect. LABORATORY DATA: Hemoglobin 9.8 and 31, white count 7, although that has gone down to 3, I think showing the degree of affect of the COVID. The patient's sodium and potassium 133 and 4.5, BUN and creatinine 10 and 0.8. Lactic acid elevated at 2.2, albumin 2.9. Liver enzymes are normal. Cardiac enzymes have been obtained and they were negative. IMPRESSION: Therefore, acute respiratory failure, COVID-19, sepsis, severe protein malnutrition, anemia of chronic disease, history of autoimmune diseases, multiple other medical issues as well. In any case, we will place her here in the ICU, aggressive therapies including Zithromax, hydroxychloroquine, convalescent plasma and remdesivir as well, as well as good supportive care by nursing staff. The patient continued to be monitored carefully for any change in mental status or respiratory status for that matter and make further assessment and judgment on her as indicated. LYLE FIGUEREDO MD DR: BRANDON/antonio JOB#: [id number] / [id number]
[2020-03-04] MEDS ORDERED: ENOXAPARIN 40 MG/0.4 ML SYRINGE. SQ SCH ×2 (10:00)
[2020-03-04] MEDS: ENOXAPARIN 40 MG/0.4 ML SYRINGE. SQ SCH (11:57)
[2020-03-04] MEDS: traMADol 50 MG TABLET PO PRN ×2 (11:59→20:02)
[2020-03-04] MEDS: ACETAMINOPHEN 325 MG TABLET PO PRN (17:47)
--- NOTE | 2020-03-04 19:18 | NUR ---
Pt tolerated FFP for the first 15 minutes, and VS stable. Increased FFP to 150 ml/hr. Will continue to monitor.
[2020-03-04] MEDS: ZOLPIDEM 5 MG TABLET. PO PRN (20:02)
--- NOTE | 2020-03-04 21:45 | NUR ---
Pt requested flexeril to help her muscles relax. MD called at this time and orders received. Will continue to monitor.
[2020-03-04] MEDS: CYCLOBENZAPRINE 10 MG TABLET. PO PRN (22:17)
[2020-03-05] VITALS (7 sets, daily range): BP systolic 87–118; BP diastolic 54–71
[2020-03-05] MEDS: methylPREDNISolone SOD SUCC PF 40 MG/ML VIAL. IV SCH ×3 (04:50→20:24)
[2020-03-05] MEDS: LEVOTHYROXINE 100 MCG TABLET PO SCH (04:50)
[2020-03-05] MEDS: traMADol 50 MG TABLET PO PRN ×2 (04:50→17:53)
--- NOTE | 2020-03-05 05:15 | NUR ---
Pt c/o of muscle knot on base of neck. Nurse brought in a heat pack for patient to help relieve it. Pt then stated, "It feels like it goes down to the end of my shoulder and up my jaw." 12 lead EKG done and placed in chart, labs drawn, and awaiting results. Pt stated, "It feels better." Will continue to monitor.
[2020-03-05 07:16] LABS: BASO # 0.1 x10^3/uL (0.0-0.2); BASO % 0 % (0-3); EOS % 0 % (0-3); HEMATOCRIT 33.3 % (36.0-47.0); HEMOGLOBIN 10.4 g/dL (12.0-15.5); LYMPH # 0.5 x10^3/uL (1.0-4.8); LYMPH % 3 % (24-48); MEAN CORPUSCULAR HEMOGLOBIN 26 pg (25-35); MEAN CORPUSCULAR HGB CONC 31 g/dL (31-37); MEAN CORPUSCULAR VOLUME 82 fL (79-100); MONO # 0.7 x10^3/uL (0.0-1.1); MONO % 4 % (0-9); NEUT # 14.5 x10^3uL (1.8-7.7); NEUT % 92 % (31-73); PLATELET COUNT 387 x10^3/uL (140-400); RED BLOOD COUNT 4.05 x10^6/uL (3.50-5.40); WHITE BLOOD COUNT 15.7 x10^3/uL (4.0-11.0)
[2020-03-05 07:25] LABS: CALCIUM 9.1 mg/dL (8.5-10.1); GFR 55.1; POTASSIUM 4.6 mmol/L (3.5-5.1)
[2020-03-05] MEDS: metFORMIN 500 MG TABLET PO SCH ×2 (08:00→16:48)
[2020-03-05] MEDS: IPRATROPIUM/ALBUTEROL 20/100mcg/INH INHALER. INH SCH ×4 (08:00→20:56)
--- NOTE | 2020-03-05 08:11 | NUR ---
Pt complaining of neck pain that radiates to her jaw and R shoulder, describes it as a 'muscle knot' rating it a 8-9/10. This was unrelieved by flexeril overnight. Called Dr Gauthier, updated him on EKG, labs, still concerns of neck pain that radiates, new orders for Hydrocodone PRN placed. Will admin and reeval.
[2020-03-05] MEDS: ENOXAPARIN 40 MG/0.4 ML SYRINGE. SQ SCH (08:26)
[2020-03-05] MEDS: CITALOPRAM 20 MG TABLET. PO SCH (08:27)
[2020-03-05] MEDS: FAMOTIDINE 20 MG TABLET PO SCH ×2 (08:27→20:24)
[2020-03-05] MEDS: PANTOPRAZOLE 40 MG TABLET. PO SCH (08:28)
[2020-03-05] MEDS: SUCRALFATE 1 GM TABLET. PO SCH ×4 (08:28→20:23)
[2020-03-05] MEDS ORDERED: METHYL SALICYLATE/MENTHOL TOPICAL OINTMENT 57GM TUBE. TP PRN (08:30)
[2020-03-05 08:34] LABS: % BANDS 9 % (0-9); % LYMPHS 2 % (24-48); % MONOS 3 % (0-10); % SEGS 86 % (35-66); PLT ESTIMATE INCREASED (ADEQUATE)
[2020-03-05 08:35] LABS: ANISOCYTOSIS SLIGHT; POLYCHROMASIA PRESENT; TOXIC GRANULATION SLIGHT; TOXIC VACUOLATION SLIGHT
[2020-03-05 08:36] LABS: HYPOCHROMIA SLIGHT; MICROCYTOSIS SLIGHT
[2020-03-05] MEDS ORDERED: HYDROcodone/APAP 5/325MG 1 TAB TABLET PO PRN ×2 (08:45)
[2020-03-05] MEDS: CEVIMELINE HCL 30 MG PO SCH (09:00)
[2020-03-05] MEDS: HYDROcodone/APAP 5/325MG 1 TAB TABLET PO PRN ×2 (09:23→21:32)
[2020-03-05] MEDS: CYCLOBENZAPRINE 10 MG TABLET. PO PRN ×2 (09:23→21:32)
[2020-03-05] MEDS ORDERED: FUROSEMIDE 20 MG/2 ML VIAL IVP ONE (16:45)
--- NOTE | 2020-03-05 16:52 | NUR ---
Pt oxygen saturation can not achieve 90% oxygen saturation, remaining between 84-89% O2 saturation on 6L NC, increased to 10L NC with no improvement. Pt denies SOA, able to communicate without issue. Double check with separate pulse oximeter, results are the same. Notified Dr Gauthier, orders received for 20mg IV lasix, and STAT chest Xray.
[2020-03-05] MEDS: PILOCARPINE 5 MG TABLET. PO SCH ×2 (16:56→20:24)
[2020-03-05] MEDS ORDERED: VANCOMYCIN PER PHARMACY MC PRN (18:00)
--- NOTE | 2020-03-05 18:19 | RAD ---
CHEST AP ONLY History: Reason: hypoxia, covid + / Spl. Instructions: / History: Comparison: March 03, 2020 Findings: Increased multifocal pulmonary opacities. No pleural effusion. No pneumothorax. Normal heart size. Impression: 1. Increased multifocal pulmonary opacities. Electronically signed by: Reza Mcknight DO (03/05/2020 6:16 PM) [facility] [place]
[2020-03-05] MEDS ORDERED: VANCOMYCIN 2 GM in IV NORMAL SALINE 500ML 500 ML IV ONE (19:00)
--- NOTE | 2020-03-05 19:56 | PN ---
DATE: SUBJECTIVE: I review the patient here in around 1900 hours, so she is doing a little better, but she is still on 15 liters. Chest x-ray shows increasing her infiltrative process. Started on her antibiotics as noted earlier. She is maximized the use of her Combivent inhaler, so we will go ahead and start her on just a mild breathing treatments twice a day. I have discussed with starchmaker at [facility] and they have said this is a valid way of going on that since the patient is having problems with her breathing as it is. She is beginning to get a little bit looser and we are therefore going to use the breathing treatments. OBJECTIVE: VITAL SIGNS: Presently, blood pressure approximately 113/70, respiratory rate 28. Her oxygen saturation varies anywhere from 89 to low 90s on 12 liters high flow nasal cannula. The patient's temperature has come down somewhat, but chest x-ray shows worsening of her infiltrative processes. Otherwise, we will continue to monitor her in the ICU. Anything gets worse, obviously will transfer her. IMPRESSION: Acute respiratory failure secondary to COVID-19; hypoxia; multi-lobe pneumonia, organism unspecified, probably COVID-19, but could be secondary infections obviously; exacerbation of chronic obstructive pulmonary disease with lower respiratory tract infections. PLAN: Continue on aggressive therapy as noted and will go from there. LYLE FIGUEREDO MD DR: BRANDON/antonio JOB#: [id number] / [id number]
--- NOTE | 2020-03-05 20:43 | NUR ---
Pharmacy Vancomycin Dosing Note S:Consulted to monitor and dose vancomycin started 03/05/20. O:MIESHA GILMORE is a 69 year old F with Pneumonia, RESPIRATORY FAILURE . Height: 5 feet, 3 inches Weight: 98.2 kg [place] Body Weight: 52.40 Adjusted Body Weight: 70.64 Dosing Weight: Actual Other Antibiotics: LEVAQUIN LABS: Last BUN: 13 Last Creatinine: 1 Creatinine Clearance: 60 Last WBC: 15.7 Last Procalcitonin: Tmax (past 24 hours): 99 Microbiology: 03/03 Blood: no growth I/O: 1560/- Drug Levels: Last level: on at Last dose given 03/05/20 at 1900 Vancomycin Dosing: Loading Dose: 2000 mg x1 Dosing Weight: Actual Target Trough: 15-20 A: Based on: Body weight and renal funciton P: 1. After loading dose, start Vancomycin 1500 mg IV q18h 2. Follow up Trough level on 03/07/20 at 0630 3. Pharmacy will continue to monitor, follow and adjust therapy as needed. BYRON MARADIAGA [facility], 03/05/20 [id number]
[2020-03-06 00:45] VITALS: BP 110/84
[2020-03-06] MEDS: IPRATRPIUM/ALBUTEROL 0.5/2.5MG 3 ML NEBU. NEB SCH ×4 (00:58→21:00)
--- NOTE | 2020-03-06 01:51 | PN ---
DATE: SUBJECTIVE: A 69-year-old female in course with acute respiratory failure with relapse of COVID-19. The patient apparently during the day has become progressively worse and antibiotics were discontinued (____) pharmacy. The patient restarted on such ____ as the patient's x-rays do show an increase in infiltrative process seen on a PA view, increased multifocal pulmonary opacities noted. OBJECTIVE: VITAL SIGNS: The patient's temperature 98.1, blood pressure dropped down to 87/58, came back up to 113/70, respiratory rate 18, pulse 65, oxygen saturation on 12 liters at 89. Continue on the breathing treatment of the MDI along with IV antibiotic therapy. Mild diuresis. Continue to monitor her accordingly and make further evaluation on this very ill individual. We will monitor here in the next several hours. If no improvement, may need to be transferred to a tertiary care facility. IMPRESSION: Acute respiratory failure secondary to COVID-19, pneumonia of unspecified etiology, sepsis, hypotension, hypoxia, autoimmune diseases, severe protein malnutrition, history of autoimmune diseases as noted, on convalescent plasma, remdesivir was ordered, whether or not they were started, they have been approved by medical staff. We will make further evaluation on her as indicated. LYLE FIGUEREDO MD DR: BRANDON/antonio JOB#: [id number] / [id number]
[2020-03-06 05:30] VITALS: BP 107/65
[2020-03-06] MEDS: methylPREDNISolone SOD SUCC PF 40 MG/ML VIAL. IV SCH ×2 (06:13→14:42)
[2020-03-06] MEDS: LEVOTHYROXINE 100 MCG TABLET PO SCH (06:13)
[2020-03-06 06:49] LABS: GFR 55.1
[2020-03-06] MEDS ORDERED: PANTOPRAZOLE 40 MG TABLET. PO SCH (07:30)
[2020-03-06] MEDS: CITALOPRAM 20 MG TABLET. PO SCH (08:24)
[2020-03-06] MEDS: FAMOTIDINE 20 MG TABLET PO SCH ×2 (08:24→21:34)
[2020-03-06] MEDS: SUCRALFATE 1 GM TABLET. PO SCH ×4 (08:24→21:36)
[2020-03-06] MEDS: metFORMIN 500 MG TABLET PO SCH ×2 (08:25→16:51)
[2020-03-06] MEDS: PILOCARPINE 5 MG TABLET. PO SCH ×4 (08:25→21:35)
[2020-03-06] MEDS: IPRATROPIUM/ALBUTEROL 20/100mcg/INH INHALER. INH SCH ×4 (08:43→21:35)
--- NOTE | 2020-03-06 09:05 | NUR ---
IP: patient +COVID-19, requires contact and airborne precautions.
[2020-03-06] MEDS: ENOXAPARIN 40 MG/0.4 ML SYRINGE. SQ SCH (09:45)
[2020-03-06] MEDS: CYCLOBENZAPRINE 10 MG TABLET. PO PRN (09:45)
[2020-03-06 10:12] VITALS: BP 108/71
[2020-03-06 11:10] VITALS: BP 119/51
--- NOTE | 2020-03-06 11:57 | NUR ---
Patient O2 saturation 85-86% on 12L HFNC. RT delivered duoneb tx. patient saturation now at 92%. WCM
[2020-03-06] MEDS ORDERED: VANCOMYCIN 1.5 GM in IV NORMAL SALINE 500ML 500 ML IV SCH (13:00)
[2020-03-06 15:02] VITALS: BP 116/58
--- NOTE | 2020-03-06 17:20 | NUR ---
SHIFT NOTE: PT STILL REQUIRING 12L HFNC TO KEEP O2 SAT AT 88-90%. PT SOA WHEN GETTING UP TO BEDSIDE COMMODE. ATTEMPTED TO SWITCH TO SIMPLE MASK AT 9L BUT PT STATED SHE FELT SHE COULD NOT BREATHE WELL THE HAVING THE HF NC ON. PT IS IN GOOD SPIRITS AND IS EAGER TO START GETTING BETTER. COMPLIANT WITH MEDICATIONS AND TX FOR COVID. NEBULIZER TX SEEM TO BENEFIT PT.
--- NOTE | 2020-03-06 19:45 | NUR ---
Assumed care of patient at 1900. Upon assessment patient was found to be tachypneic, labored, with SpO2 74% ON 13L HFNC. Changed to NRB @15L, SpO2 increased to 80%. Call placed to Dr Gauthier, orders received for ABG, chest x-ray, venous labs, and transfer to higher level of care. Reason for transfer explained to patient, and she agreed it was in her best interest. Dr Gauthier arrived to unit shortly after call placed. Arrangements made for transfer to [facility] ICU room 116.
[2020-03-06 19:55] VITALS: BP 104/84
[2020-03-06] MEDS ORDERED: DEXAMETHASONE 4 MG TABLET PO SCH (21:00)
[2020-03-06 21:01] LABS: BASO % 0 % (0-3); EOS % 0 % (0-3); HEMATOCRIT 27.5 % (36.0-47.0); HEMOGLOBIN 8.6 g/dL (12.0-15.5); LYMPH # 0.5 x10^3/uL (1.0-4.8); LYMPH % 3 % (24-48); MEAN CORPUSCULAR HEMOGLOBIN 25 pg (25-35); MEAN CORPUSCULAR HGB CONC 31 g/dL (31-37); MEAN CORPUSCULAR VOLUME 81 fL (79-100); MONO # 0.6 x10^3/uL (0.0-1.1); MONO % 4 % (0-9); NEUT # 14.7 x10^3uL (1.8-7.7); NEUT % 93 % (31-73); PLATELET COUNT 353 x10^3/uL (140-400); RED CELL DISTRIBUTION WIDTH 15.9 % (11.5-14.5); WHITE BLOOD COUNT 15.9 x10^3/uL (4.0-11.0)
[2020-03-06 21:08] LABS: CALCIUM 8.3 mg/dL (8.5-10.1); GFR 55.1; POTASSIUM 4.7 mmol/L (3.5-5.1)
[2020-03-06 21:12] LABS: BGAS PH 7.48 (7.35-7.45)
--- NOTE | 2020-03-06 21:52 | RAD ---
Single view chest dated 03/06/2020. Comparison made to 03/05/2020. CLINICAL INDICATION: Covid 19. Hypoxia. FINDINGS: Single upright portable exam performed. Heart and mediastinal contours are stable. There is increasing perihilar airspace disease with nodular densities at the peripheral aspects of the bilateral mid zone. No definite pleural effusion. No pneumothorax. IMPRESSION: Increasing bilateral airspace disease consistent with history of Covid 19 pneumonitis. Electronically signed by: Shad Cary MD (03/06/2020 9:49 PM) [facility]
--- NOTE | 2020-03-07 00:41 | EKG ---
[address] [address] Test Date: 2020-03-06 Test Time: 20:46:08 Pat Name: MIESHA GILMORE Department: Room: [facility] 1 Gender: F Shell Grader: : 1950 Requested By: LYLE FIGUEREDO Order Number: [id number] Reading MD: Measurements Intervals [place] Rate: 81 P: 45 NH: 138 QRS: -25 QRSD: 108 T: 16 QT: 378 QTc: 440 Interpretive Statements SINUS RHYTHM LEFTWARD AXIS R-S TRANSITION ZONE IN V LEADS DISPLACED TO THE LEFT INCOMPLETE RIGHT BUNDLE BRANCH BLOCK LEFT VENTRICULAR HYPERTROPHY ABNORMAL ECG RI6.01 No previous ECG available for comparison
--- NOTE | 2020-03-07 06:52 | PN ---
DATE: 03/06/2020 SUBJECTIVE: In ICU bed #4. The patient apparently was doing reasonably well today in the low 90s after breathing treatments with rebreather; however, here in the last hour or so, the patient has taken ____ and she has had increased respiratory distress and having difficulty breathing, somewhat weakened. The patient otherwise began to have difficulty breathing, using some accessory muscles. Looked weak and tired from earlier in the day. Placed on 12 liters high flow nasal cannula and then rebreather, she was in the 74% and up to 81%. The patient is otherwise as noted this weekend and will be transferred down to [place] for further evaluation. OBJECTIVE: VITAL SIGNS: The blood pressure 104/84, respiratory rate anywhere up to 22-30, pulse 70, afebrile. GENERAL: The patient is alert. She is able to talk only a few words, but does look more pale and definitely weaker than she was earlier today. EXTREMITIES: No clubbing, cyanosis. Trace edema. NEUROLOGIC: Intact. Otherwise, labs are pending and we will go ahead and continue to monitor her accordingly. She continues on vancomycin and Levaquin, started on first Decadron, breathing treatments. IMPRESSION: Acute respiratory failure secondary to COVID-19, pneumonia of unspecified etiology, sepsis, hypotension, hypoxia, severe protein malnutrition, history of autoimmune diseases such as sore joints. The patient has been on convalescent plasma, remdesivir was ordered. ____ get her transferred to ICU down at [place] as soon as possible. LYLE FIGUEREDO MD DR: BRANDON/antonio JOB#: [id number] / [id number]
[2020-03-07] MEDS ORDERED: FUROSEMIDE 20 MG/2 ML VIAL IVP SCH (09:00)
--- NOTE | 2020-03-08 12:42 | DS ---
DATE OF DISCHARGE: 03/06/2020 HOSPITAL COURSE: A 69-year-old female with history of COVID-19 and multiple autoimmune diseases. The patient had increased shortness of breath while at home. She had increased fever, chills, discomfort with breathing. The patient was brought in and placed in an ICU unit, COVID-19 preparations there. The patient was placed on IV antibiotic therapy. She was given steroids including Decadron. She had increased multifocal pulmonary opacities on her chest x-ray, as she progressed even despite being on IV antibiotic therapy. The patient had been on a combination of vancomycin and Zosyn but seemed to deteriorate somewhat. She had been on hydroxychloroquine. She had been on that for some time, as she has a history as noted above of autoimmune diseases. The patient's hemoglobin dropped slightly to 8.6 and 27. The patient's blood gases were really pretty reasonable, although the patient became weakened and difficulty with breathing and using accessory muscles, but was stabilized by the time she was transferred down to [place] for further evaluation by the Pulmonology and other groups down there. Her coronavirus was positive. Mycoplasma was negative. The patient was noted to have some mild deterioration. Her oxygen saturation varied anywhere from 80%-98% on nonrebreather, but like as I say she was having some difficulty breathing, respiratory rate up in the 20-28 range. Chest x-ray showed deterioration, so she was transferred for further evaluation with a more specialized group of individuals that are available here. IMPRESSION: Acute respiratory failure secondary to COVID-19, pneumonia of unspecified etiology, sepsis, hypotension, hypoxia, severe protein malnutrition, history of autoimmune diseases. She was on convalescent plasma, remdesivir, Decadron, hydroxychloroquine and the like. The patient was transferred via EMS to that facility for further evaluation. LYLE FIGUEREDO MD DR: BRANDON/antonio JOB#: [id number] / [id number]
== END 2020-03-06 22:20 | disposition short-term general hospital (02) | DRG 871 ==
LOC: ER 12:42 → ICU 16:15
PROVIDERS: ADMIT Family Medicine; ATTEND Family Medicine
PROC: XW13325 Transfusion of Convalescent Plasma (Nonautologous) into Peripheral Vein, Percutaneous Approach, New Technology Group 5 (ICD-10-PCS; principal; 2020-03-03)
PROC: XW033E5 Introduction of Remdesivir Anti-infective into Peripheral Vein, Percutaneous Approach, New Technology Group 5 (ICD-10-PCS; 2020-03-03)
DX: A41.89 Other specified sepsis (principal); J18.9 Pneumonia, unspecified organism; U07.1 COVID-19; J96.00 Acute respiratory failure, unspecified whether with hypoxia or hypercapnia; E43 Unspecified severe protein-calorie malnutrition; J44.1 Chronic obstructive pulmonary disease with (acute) exacerbation; J44.0 Chronic obstructive pulmonary disease with (acute) lower respiratory infection; I10 Essential (primary) hypertension; M19.90 Unspecified osteoarthritis, unspecified site; Z90.49 Acquired absence of other specified parts of digestive tract; M32.9 Systemic lupus erythematosus, unspecified; J45.909 Unspecified asthma, uncomplicated; I73.00 Raynaud's syndrome without gangrene; R65.20 Severe sepsis without septic shock; D63.1 Anemia in chronic kidney disease; Z79.899 Other long term (current) drug therapy; Z68.39 Body mass index [BMI] 39.0-39.9, adult; Z88.0 Allergy status to penicillin; Z88.2 Allergy status to sulfonamides; Z88.8 Allergy status to other drugs, medicaments and biological substances
CPT/HCPCS: 36415; 36600; 71045; 71275; 80048; 80053; 82565; 82803; 82947; 83605; 83735; 83880; 84484; 85007; 85025; 85379; 86738; 86850; 86900; 86901; 86927; 87040; 93005; 94640; 96365; J1650; J1956; J2920; J3370; J7040; J7613; J8540; 99285-25; J7030; P9017; U0003-CS